=== PATIENT | female | born 1935 | race Caucasian/White ===

== ENCOUNTER 2016-06-14 16:41 | Inpatient (IN) ==
--- NOTE | 2016-06-14 16:52 | Emergency Department Note ---
Disposition Clinical Impression: Acalculous cholecystitis Disposition: Still a Patient Condition: Fair General Adult HPI - General Chief complaint: ED Abdominal Pain Stated complaint: RLQ abdominal pain Time Seen by Provider: 06/14/16 16:46 Source: patient Limitations: no limitations - History of Present Illness Pain Scale: 10 - Related Data Home Medications Medication Instructions Recorded Confirmed Atorvastatin [Lipitor] 10 mg PO HS 06/01/15 06/14/16 Cholecalciferol (Vitamin D3) 1,000 unit PO DAILY 06/01/15 06/14/16 [Vitamin D] Lisinopril-HCTZ 10-12.5 [Prinzide 1 each PO DAILY 06/01/15 06/14/16 10-12.5] Omeprazole [PriLOSEC] 20 mg PO BIDAC 06/01/15 06/14/16 Ropinirole [Requip] 3 mg PO BID 06/01/15 06/14/16 Sertraline [Zoloft] 25 mg PO BID 02/14/16 06/14/16 Aspirin 81 mg PO DAILY 06/14/16 06/14/16 HYDROcodone/Acet 5/325 mg [Taylor 1 tab PO Q8H PRN 06/14/16 06/14/16 5-325 mg] Hyoscyamine SL [Levsin SL] 0.125 mg SL TID 06/14/16 06/14/16 Lansoprazole [Prevacid] 15 mg PO DAILY 06/14/16 06/14/16 Ondansetron ODT [Zofran ODT] 4 mg SL Q8H PRN 06/14/16 06/14/16 Sucralfate [Carafate] 1 gm PO BID 06/14/16 06/14/16 Vitamin B Complex [B Complex] 1 each PO DAILY 06/14/16 06/14/16 Allergies Allergy/AdvReac Type Severity Reaction Status Date / Time gabapentin Allergy Rash Verified 06/14/16 19:11 terfenadine [From [place]] Allergy Rash Verified 06/14/16 19:11 tuberculin,PPD,multi-puncture Allergy Rash Verified 06/14/16 19:11 Past Medical History - Past Medical History Medical history: Reports: GERD, hyperlipidemia, hypertension Psychiatric history: Reports: anxiety, depression 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 - Social History Smoking Status: Never smoker Smokeless Tobacco Status: No Alcohol use: Reports: none Drug use: Reports: none Physical Exam - General Limitations: no limitations General appearance: alert, in no apparent distress Course Vital Signs Temperature 98.1 F 06/14/16 16:43 Pulse Rate 89 06/14/16 16:43 Respiratory Rate 18 06/14/16 16:43 Blood Pressure 113/53 06/14/16 16:43 O2 Sat by Pulse Oximetry 94 06/14/16 16:43 Temperature 97.6 F 06/19/16 10:50 Pulse Rate 72 06/19/16 10:50 Respiratory Rate 16 06/19/16 10:50 Blood Pressure 105/58 06/19/16 10:50 O2 Sat by Pulse Oximetry 96 06/19/16 10:50 Oxygen Delivery Oxygen Delivery Room Air Medical Decision Making - Lab Data Result diagrams: 06/19/16 03:58 06/19/16 03:58 Lab Results 06/14/16 06/14/16 06/14/16 Range/Units 17:52 17:52 17:52 WBC 17.2 H (4.3-11.1) K/mcL RBC 4.30 (3.82-4.97) M/mcL Hgb 12.0 (11.5-15.4) g/dL Hct 36.8 (35.3-44.9) % MCV 85.6 (83.0-100.0) fL MCH 27.9 L (28.0-33.3) pg MCHC 32.6 (31.6-35.5) g/dL RDW 14.6 H (11.5-14.5) % Plt Count 198 (140-400) K/mcL MPV 9.6 (9.4-12.4) fL Immature Gran % 0.4 (0-4) % Seg Neutrophils % 80.6 % Lymphocytes % 10.2 % Monocytes % 8.5 % Eosinophils % 0.1 % Basophils % 0.2 % Neutrophils # 13.9 H (1.6-8.9) K/mcL Lymphocytes # 1.8 (0.6-4.6) K/mcL Monocytes # 1.5 H (0.0-1.3) K/mcL Eosinophils # 0.0 (0.0-0.6) K/mcL Basophils # 0.0 (0.0-0.2) K/mcL Immature Plt Fraction 4.0 (1.1-6.1) % PT 14.1 H (9.4-12.1) Seconds INR 1.3 APTT 27.3 (26.0-36.0) Seconds Sodium 138 (136-145) mEq/L Potassium 3.4 L (3.5-4.5) mEq/L Chloride 103 (98-109) mEq/L Carbon Dioxide 25 (19-29) mEq/L BUN 16 (7-20) mg/dL Creatinine 0.89 (0.57-1.11) mg/dL Est GFR ( Amer) > 60 (> 60) Est GFR (Non-Af Amer) > 60 (> 60) BUN/Creatinine Ratio 18 (6-26) Glucose 91 (70-99) mg/dL POC Glucose (58-89) Calculated Osmolality 287 (280-300) Calcium 9.1 (8.6-10.8) mg/dL Phosphorus (2.3-4.7) mg/dL Magnesium (1.6-2.6) mg/dL Total Bilirubin 0.9 (0.2-1.2) mg/dL Direct Bilirubin 0.4 (0.0-0.5) mg/dL Indirect Bilirubin 0.5 (0.0-1.2) mg/dL AST 41 H (5-34) Units/L ALT 24 (0-55) Units/L Alkaline Phosphatase 79 (38-126) Units/L Troponin I (0-0.03) ng/mL Serum Total Protein 6.8 (6.0-8.3) g/dL Albumin 3.4 L (3.5-5.0) g/dL Globulin 3.4 (2.4-3.5) g/dL Albumin/Globulin Ratio 1.0 L (1.1-2.2) Amylase 29 (25-125) Units/L Lipase < 4 L (8-78) Units/L Urine Color (Yellow) Urine Clarity (Clear) Urine pH (5.0-8.0) pH Units Ur Specific [place] (1.010-1.025) Urine Protein (Neg-Trace) mg/dL Urine Glucose (UA) (Normal) mg/dL Urine Ketones (Negative) mg/dL Urine Blood (Negative) Urine Nitrite (Negative) Urine Bilirubin (Negative) Urine Urobilinogen (Normal) mg/dL Ur Leukocyte Esterase (Negative) Urine Microscopic RBC (0-3) per hpf Urine Microscopic WBC (0-3) per hpf Ur Squamous Epith Cells (None-Few) per lpf Calcium Oxalate Crystal Urine Bacteria (None-Few) per hpf Hyaline Casts (None-Few) per lpf Urine Yeast Ur Culture Indicated? (NO) 06/14/16 06/14/16 06/15/16 Range/Units 17:52 18:00 00:08 WBC (4.3-11.1) K/mcL RBC (3.82-4.97) M/mcL Hgb (11.5-15.4) g/dL Hct (35.3-44.9) % MCV (83.0-100.0) fL MCH (28.0-33.3) pg MCHC (31.6-35.5) g/dL RDW (11.5-14.5) % Plt Count (140-400) K/mcL MPV (9.4-12.4) fL Immature Gran % (0-4) % Seg Neutrophils % % Lymphocytes % % Monocytes % % Eosinophils % % Basophils % % Neutrophils # (1.6-8.9) K/mcL Lymphocytes # (0.6-4.6) K/mcL Monocytes # (0.0-1.3) K/mcL Eosinophils # (0.0-0.6) K/mcL Basophils # (0.0-0.2) K/mcL Immature Plt Fraction (1.1-6.1) % PT (9.4-12.1) Seconds INR APTT (26.0-36.0) Seconds Sodium (136-145) mEq/L Potassium (3.5-4.5) mEq/L Chloride (98-109) mEq/L Carbon Dioxide (19-29) mEq/L BUN (7-20) mg/dL Creatinine (0.57-1.11) mg/dL Est GFR ( Amer) (> 60) Est GFR (Non-Af Amer) (> 60) BUN/Creatinine Ratio (6-26) Glucose (70-99) mg/dL POC Glucose (58-89) Calculated Osmolality (280-300) Calcium (8.6-10.8) mg/dL Phosphorus (2.3-4.7) mg/dL Magnesium (1.6-2.6) mg/dL Total Bilirubin (0.2-1.2) mg/dL Direct Bilirubin (0.0-0.5) mg/dL Indirect Bilirubin (0.0-1.2) mg/dL AST (5-34) Units/L ALT (0-55) Units/L Alkaline Phosphatase (38-126) Units/L Troponin I 0.05 H* 0.03 (0-0.03) ng/mL Serum Total Protein (6.0-8.3) g/dL Albumin (3.5-5.0) g/dL Globulin (2.4-3.5) g/dL Albumin/Globulin Ratio (1.1-2.2) Amylase (25-125) Units/L Lipase (8-78) Units/L Urine Color Dark Yellow (Yellow) Urine Clarity Cloudy A (Clear) Urine pH 6.0 (5.0-8.0) pH Units Ur Specific [place] 1.030 H (1.010-1.025) Urine Protein Trace (Neg-Trace) mg/dL Urine Glucose (UA) Normal (Normal) mg/dL Urine Ketones Negative (Negative) mg/dL Urine Blood Negative (Negative) Urine Nitrite Negative (Negative) Urine Bilirubin Small H (Negative) Urine Urobilinogen Normal (Normal) mg/dL Ur Leukocyte Esterase Moderate H (Negative) Urine Microscopic RBC 0-3 (0-3) per hpf Urine Microscopic WBC 5-15 H (0-3) per hpf Ur Squamous Epith Cells Many H (None-Few) per lpf Calcium Oxalate Crystal Present Urine Bacteria Few (None-Few) per hpf Hyaline Casts Few (None-Few) per lpf Urine Yeast Test Not Performed Ur Culture Indicated? YES A (NO) 06/15/16 06/15/16 06/15/16 Range/Units 00:08 00:08 00:36 WBC 15.1 H (4.3-11.1) K/mcL RBC 4.11 (3.82-4.97) M/mcL Hgb 11.5 (11.5-15.4) g/dL Hct 35.8 (35.3-44.9) % MCV 87.1 (83.0-100.0) fL MCH 28.0 (28.0-33.3) pg MCHC 32.1 (31.6-35.5) g/dL RDW 14.6 H (11.5-14.5) % Plt Count 181 (140-400) K/mcL MPV 9.8 (9.4-12.4) fL Immature Gran % 0.5 (0-4) % Seg Neutrophils % 75.9 % Lymphocytes % 14.7 % Monocytes % 8.5 % Eosinophils % 0.1 % Basophils % 0.3 % Neutrophils # 11.5 H (1.6-8.9) K/mcL Lymphocytes # 2.2 (0.6-4.6) K/mcL Monocytes # 1.3 (0.0-1.3) K/mcL Eosinophils # 0.0 (0.0-0.6) K/mcL Basophils # 0.0 (0.0-0.2) K/mcL Immature Plt Fraction 3.9 (1.1-6.1) % PT (9.4-12.1) Seconds INR APTT (26.0-36.0) Seconds Sodium 140 (136-145) mEq/L Potassium 3.2 L (3.5-4.5) mEq/L Chloride 106 (98-109) mEq/L Carbon Dioxide 26 (19-29) mEq/L BUN 14 (7-20) mg/dL Creatinine 0.81 (0.57-1.11) mg/dL Est GFR ( Amer) > 60 (> 60) Est GFR (Non-Af Amer) > 60 (> 60) BUN/Creatinine Ratio 17 (6-26) Glucose 84 (70-99) mg/dL POC Glucose 83 (58-89) Calculated Osmolality 290 (280-300) Calcium 8.6 (8.6-10.8) mg/dL Phosphorus 2.8 (2.3-4.7) mg/dL Magnesium 1.9 (1.6-2.6) mg/dL Total Bilirubin 0.8 (0.2-1.2) mg/dL Direct Bilirubin (0.0-0.5) mg/dL Indirect Bilirubin (0.0-1.2) mg/dL AST 35 H (5-34) Units/L ALT 22 (0-55) Units/L Alkaline Phosphatase 70 (38-126) Units/L Troponin I (0-0.03) ng/mL Serum Total Protein 6.0 (6.0-8.3) g/dL Albumin 3.0 L (3.5-5.0) g/dL Globulin 3.0 (2.4-3.5) g/dL Albumin/Globulin Ratio 1.0 L (1.1-2.2) Amylase (25-125) Units/L Lipase (8-78) Units/L Urine Color (Yellow) Urine Clarity (Clear) Urine pH (5.0-8.0) pH Units Ur Specific [place] (1.010-1.025) Urine Protein (Neg-Trace) mg/dL Urine Glucose (UA) (Normal) mg/dL Urine Ketones (Negative) mg/dL Urine Blood (Negative) Urine Nitrite (Negative) Urine Bilirubin (Negative) Urine Urobilinogen (Normal) mg/dL Ur Leukocyte Esterase (Negative) Urine Microscopic RBC (0-3) per hpf Urine Microscopic WBC (0-3) per hpf Ur Squamous Epith Cells (None-Few) per lpf Calcium Oxalate Crystal Urine Bacteria (None-Few) per hpf Hyaline Casts (None-Few) per lpf Urine Yeast Ur Culture Indicated? (NO) Attestation Statement - Attestation Attestation: I examined this patient and my medical decision-making was reviewed with the EMBALMER APPRENTICE/PA/Advanced Practice Nurse/Resident Physician. I agree with the documented findings, disposition and treatment plan as described except to the extent set forth below. Face to face time provided Patient complains of right-sided abdominal pain for the past 3 days. She appears in no acute distress on exam. Triage vitals and note reviewed by me. Patient seen and evaluated in conjunction with the resident physician
--- NOTE | 2016-06-14 17:10 | Emergency Department Note ---
Disposition Clinical Impression: Acalculous cholecystitis Disposition: Still a Patient Condition: Fair Referrals: Jose Zaman MD [Primary Care Provider] - Forms: ED Satisfaction Letter, Work/School Release Time of Disposition: 19:00 Abdominal Pain HPI - General Chief Complaint: ED Abdominal Pain Stated Complaint: RLQ abdominal pain Time Seen by Provider: 06/14/16 16:46 Source: patient Mode of arrival: ambulatory Limitations: no limitations Nursing Notes Reviewed: Yes Vital Signs Reviewed: Yes - History of Present Illness HPI Narrative: Patient presents to the ED the chief complaint is abdominal pain. Patient reports that she has had this pain for 3 days. She woke up Sunday morning and had discomfort in her right lower quadrant. She started having profuse vomiting and vomited multiple times, which eventually just became very yellow and dry heaving. She states that since then she has had no appetite and has had very little to eat or drink. She was actually in [place] and went into an emergency department there yesterday who did a CT of her abdomen and pelvis as well as a gallbladder ultrasound and states that her gallbladder did not look good, but was not anything surgical at the time. Was told to follow up with her primary care physician. She was placed on a PPI, sucralfate, given Hycosin, mean and discharge. She states her pain is increasing and she is concerned something is wrong. She denies any fever, chills, chest pain, shortness of breath, diarrhea, pain or swelling in her legs. She has no history of DVT or PE. She does state that she takes a baby aspirin. States she is relatively healthy otherwise and has had her tubes tied several years ago. The pain is described as a very sharp stabbing pain mainly in her right upper quadrant but also in her epigastrium, much worse with a deep breath and palpation. Is also having pain in the right lower quadrant that feels achy. It does not seem to be affected by eating, but she states she has not had anything to eat since she started vomiting. She also reports that she was diagnosed with urinary tract infection but was not given any antibiotics. She also states that she has a history of kidney stones and this feels completely dissimilar. Pain Scale: 10 - Related Data Home Medications Medication Instructions Recorded Confirmed Amitriptyline [Elavil] 25 mg PO HS 06/01/15 02/14/16 Atorvastatin [Lipitor] 10 mg PO HS 06/01/15 02/14/16 Cholecalciferol (Vitamin D3) 1,000 unit PO DAILY 06/01/15 02/14/16 [Vitamin D] Lisinopril-HCTZ 10-12.5 [Prinzide 1 each PO DAILY 06/01/15 02/14/16 10-12.5] Omeprazole [PriLOSEC] 20 mg PO BIDAC 06/01/15 02/14/16 Ropinirole [Requip] 3 mg PO BID 06/01/15 02/14/16 Tizanidine HCl [Zanaflex] 2 mg PO BID 06/01/15 02/14/16 Triamcinolone Acet 0.1% CRM 1 appl TP BID 06/01/15 02/14/16 [Kenalog] Sertraline [Zoloft] 25 mg PO BID 02/14/16 02/14/16 Previous Rx's Medication Instructions Recorded TraMADol [Ultram] 50 mg PO TID #15 tablet 06/02/15 Allergies Allergy/AdvReac Type Severity Reaction Status Date / Time gabapentin Allergy Rash Verified 06/14/16 16:42 terfenadine [From Seldane] Allergy Rash Verified 06/14/16 16:42 tuberculin,PPD,multi-puncture Allergy Rash Verified 06/14/16 16:42 All systems ED: reviewed and negative except as stated. 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 Psychiatric history: Reports: anxiety, depression - Social History Smoking status: Never smoker Alcohol use: Reports: none Drug use: Reports: none Physical Exam - General Limitations: no limitations General appearance: alert, in no apparent distress - Head Head exam: atraumatic, normocephalic, normal inspection - Eye Eye exam: Present: normal appearance, PERRL, EOMI - ENT ENT exam: mucous membranes dry - Neck Neck exam: Present: normal inspection, full ROM, trachea midline - Chest Chest inspection: Present: normal inspection, symmetric chest wall rise - Respiratory Respiratory exam: Present: normal lung sounds bilaterally - Cardiovascular Cardiovascular exam: Present: regular rate, normal rhythm, normal heart sounds - Abdominal Exam Abdominal exam: Present: soft, tenderness, guarding (RLQ), hyperactive bowel sounds, tenderness at McBurney's Point. Absent: distention, rebound, Daigle's sign Abdominal tenderness: Present: RUQ, moderate - Extremities Exam Extremities exam: Present: normal inspection, full ROM. Absent: tenderness, pedal edema - Back Exam Back exam: Present: normal inspection, full ROM. Absent: tenderness - Neurological Exam Neurological exam: Present: alert, oriented X3 - Psychiatric Psychiatric exam: Present: normal affect, normal mood - Skin Skin exam: Present: warm, dry, intact, normal color Course - Reevaluation(s) Reevaluation #1: I spoke with the on-call surgeon, Dr. Bruce. He agreed with ultrasound. Requested admission to the hospitalist service and consult to him and he was here tonight or in the morning. Patient's pain is fairly well under control and was denying the need for any pain medication. Time: 18:50 Vital Signs Temperature 98.1 F 06/14/16 16:43 Pulse Rate 89 06/14/16 16:43 Respiratory Rate 18 06/14/16 16:43 Blood Pressure 113/53 06/14/16 16:43 O2 Sat by Pulse Oximetry 94 06/14/16 16:43 Temperature 98.1 F 06/14/16 16:43 Pulse Rate 76 06/14/16 17:52 Respiratory Rate 18 06/14/16 16:43 Blood Pressure 111/61 06/14/16 17:52 O2 Sat by Pulse Oximetry 94 06/14/16 16:43 Oxygen Delivery Oxygen Delivery Room Air Abdominal Pain - Lab Data Result diagrams: 06/14/16 17:52 06/14/16 17:52 Lab Results 06/14/16 06/14/16 06/14/16 Range/Units 17:52 17:52 17:52 WBC 17.2 H (4.3-11.1) K/mcL RBC 4.30 (3.82-4.97) M/mcL Hgb 12.0 (11.5-15.4) g/dL Hct 36.8 (35.3-44.9) % MCV 85.6 (83.0-100.0) fL MCH 27.9 L (28.0-33.3) pg MCHC 32.6 (31.6-35.5) g/dL RDW 14.6 H (11.5-14.5) % Plt Count 198 (140-400) K/mcL MPV 9.6 (9.4-12.4) fL Immature Gran % 0.4 (0-4) % Seg Neutrophils % 80.6 % Lymphocytes % 10.2 % Monocytes % 8.5 % Eosinophils % 0.1 % Basophils % 0.2 % Neutrophils # 13.9 H (1.6-8.9) K/mcL Lymphocytes # 1.8 (0.6-4.6) K/mcL Monocytes # 1.5 H (0.0-1.3) K/mcL Eosinophils # 0.0 (0.0-0.6) K/mcL Basophils # 0.0 (0.0-0.2) K/mcL Immature Plt Fraction 4.0 (1.1-6.1) % PT 14.1 H (9.4-12.1) Seconds INR 1.3 APTT 27.3 (26.0-36.0) Seconds Sodium 138 (136-145) mEq/L Potassium 3.4 L (3.5-4.5) mEq/L Chloride 103 (98-109) mEq/L Carbon Dioxide 25 (19-29) mEq/L BUN 16 (7-20) mg/dL Creatinine 0.89 (0.57-1.11) mg/dL Est GFR ( Amer) > 60 (> 60) Est GFR (Non-Af Amer) > 60 (> 60) BUN/Creatinine Ratio 18 (6-26) Glucose 91 (70-99) mg/dL Calculated Osmolality 287 (280-300) Calcium 9.1 (8.6-10.8) mg/dL Total Bilirubin 0.9 (0.2-1.2) mg/dL Direct Bilirubin 0.4 (0.0-0.5) mg/dL Indirect Bilirubin 0.5 (0.0-1.2) mg/dL AST 41 H (5-34) Units/L ALT 24 (0-55) Units/L Alkaline Phosphatase 79 (38-126) Units/L Troponin I (0-0.03) ng/mL Serum Total Protein 6.8 (6.0-8.3) g/dL Albumin 3.4 L (3.5-5.0) g/dL Globulin 3.4 (2.4-3.5) g/dL Albumin/Globulin Ratio 1.0 L (1.1-2.2) Amylase 29 (25-125) Units/L Lipase < 4 L (8-78) Units/L Urine Color (Yellow) Urine Clarity (Clear) Urine pH (5.0-8.0) pH Units Ur Specific [place] (1.010-1.025) Urine Protein (Neg-Trace) mg/dL Urine Glucose (UA) (Normal) mg/dL Urine Ketones (Negative) mg/dL Urine Blood (Negative) Urine Nitrite (Negative) Urine Bilirubin (Negative) Urine Urobilinogen (Normal) mg/dL Ur Leukocyte Esterase (Negative) Urine Microscopic RBC (0-3) per hpf Urine Microscopic WBC (0-3) per hpf Ur Squamous Epith Cells (None-Few) per lpf Calcium Oxalate Crystal Urine Bacteria (None-Few) per hpf Hyaline Casts (None-Few) per lpf Urine Yeast Ur Culture Indicated? (NO) 06/14/16 06/14/16 Range/Units 17:52 18:00 WBC (4.3-11.1) K/mcL RBC (3.82-4.97) M/mcL Hgb (11.5-15.4) g/dL Hct (35.3-44.9) % MCV (83.0-100.0) fL MCH (28.0-33.3) pg MCHC (31.6-35.5) g/dL RDW (11.5-14.5) % Plt Count (140-400) K/mcL MPV (9.4-12.4) fL Immature Gran % (0-4) % Seg Neutrophils % % Lymphocytes % % Monocytes % % Eosinophils % % Basophils % % Neutrophils # (1.6-8.9) K/mcL Lymphocytes # (0.6-4.6) K/mcL Monocytes # (0.0-1.3) K/mcL Eosinophils # (0.0-0.6) K/mcL Basophils # (0.0-0.2) K/mcL Immature Plt Fraction (1.1-6.1) % PT (9.4-12.1) Seconds INR APTT (26.0-36.0) Seconds Sodium (136-145) mEq/L Potassium (3.5-4.5) mEq/L Chloride (98-109) mEq/L Carbon Dioxide (19-29) mEq/L BUN (7-20) mg/dL Creatinine (0.57-1.11) mg/dL Est GFR ( Amer) (> 60) Est GFR (Non-Af Amer) (> 60) BUN/Creatinine Ratio (6-26) Glucose (70-99) mg/dL Calculated Osmolality (280-300) Calcium (8.6-10.8) mg/dL Total Bilirubin (0.2-1.2) mg/dL Direct Bilirubin (0.0-0.5) mg/dL Indirect Bilirubin (0.0-1.2) mg/dL AST (5-34) Units/L ALT (0-55) Units/L Alkaline Phosphatase (38-126) Units/L Troponin I 0.05 H* (0-0.03) ng/mL Serum Total Protein (6.0-8.3) g/dL Albumin (3.5-5.0) g/dL Globulin (2.4-3.5) g/dL Albumin/Globulin Ratio (1.1-2.2) Amylase (25-125) Units/L Lipase (8-78) Units/L Urine Color Dark Yellow (Yellow) Urine Clarity Cloudy A (Clear) Urine pH 6.0 (5.0-8.0) pH Units Ur Specific [place] 1.030 H (1.010-1.025) Urine Protein Trace (Neg-Trace) mg/dL Urine Glucose (UA) Normal (Normal) mg/dL Urine Ketones Negative (Negative) mg/dL Urine Blood Negative (Negative) Urine Nitrite Negative (Negative) Urine Bilirubin Small H (Negative) Urine Urobilinogen Normal (Normal) mg/dL Ur Leukocyte Esterase Moderate H (Negative) Urine Microscopic RBC 0-3 (0-3) per hpf Urine Microscopic WBC 5-15 H (0-3) per hpf Ur Squamous Epith Cells Many H (None-Few) per lpf Calcium Oxalate Crystal Present Urine Bacteria Few (None-Few) per hpf Hyaline Casts Few (None-Few) per lpf Urine Yeast Test Not Performed Ur Culture Indicated? YES A (NO) S.B.ALucia - S.BSayALucia Situation: Demographics, MOA Background: Presenting Complaint, Relevant PMH, Meds, & Allergies Assessment: Vital Signs, Course and respsone to treatment, Exam Concerns, Patient/Family Expectation, Pertinant Lab Results, Outstanding Labs Recommendation: Barrier(s) to disposition, Recommendation based on pending studies, treatments, or consults S.B.A.Irvin Report Given to: Dr. Carlos Moctezuma Repor Time: 19:00
[2016-06-14] MEDS ORDERED: 0.9 % Sodium Chloride 500 ML IVC ONE (17:31)
[2016-06-14 17:57] LABS: Basophils % 0.2 %; Eosinophils % 0.1 %; Hematocrit 36.8 % (35.3-44.9); Immature Granulocytes % 0.4 % (0-4); Lymphocytes # 1.8 K/mcL (0.6-4.6); Lymphocytes % 10.2 %; Mean Corpuscular HGB Conc 32.6 g/dL (31.6-35.5); Mean Corpuscular Hemoglobin 27.9 pg (28.0-33.3); Mean Corpuscular Volume 85.6 fL (83.0-100.0); Mean Platelet Volume 9.6 fL (9.4-12.4); Monocytes # 1.5 K/mcL (0.0-1.3); Monocytes % 8.5 %; Neutrophils # 13.9 K/mcL (1.6-8.9); Platelet Count 198 K/mcL (140-400); Red Cell Distribution Width 14.6 % (11.5-14.5); Segmented Neutrophils % 80.6 %
[2016-06-14 18:06] LABS: INR 1.3; Prothrombin Time 14.1 Seconds (9.4-12.1)
[2016-06-14 18:09] LABS: Activated Partial Thrombo Time 27.3 Seconds (26.0-36.0)
[2016-06-14 18:12] LABS: Alanine Aminotransferase 24 Units/L (0-55); Albumin 3.4 g/dL (3.5-5.0); Alkaline Phosphatase 79 Units/L (38-126); Amylase 29 Units/L (25-125); Aspartate Amino Transferase 41 Units/L (5-34); BUN/Creatinine Ratio 18 (6-26); Bilirubin,Direct 0.4 mg/dL (0.0-0.5); Bilirubin,Indirect 0.5 mg/dL (0.0-1.2); Bilirubin,Total 0.9 mg/dL (0.2-1.2); Blood Urea Nitrogen 16 mg/dL (7-20); Calcium 9.1 mg/dL (8.6-10.8); Carbon Dioxide 25 mEq/L (19-29); Chloride 103 mEq/L (98-109); Globulin 3.4 g/dL (2.4-3.5); Glucose 91 mg/dL (70-99); Osmolality,Calculated 287 (280-300); Potassium 3.4 mEq/L (3.5-4.5); Sodium 138 mEq/L (136-145); Total Protein 6.8 g/dL (6.0-8.3); eGFR For African Americans > 60 (> 60); eGFR For Non-African Americans > 60 (> 60)
[2016-06-14 18:13] LABS: Lipase < 4 Units/L (8-78)
[2016-06-14 18:14] LABS: Bilirubin,Urine Small (Negative); Blood,Urine Negative (Negative); Clarity,Urine Cloudy (Clear); Color,Urine Dark Yellow (Yellow); Glucose,Urine (UA) Normal (Normal); Ketones,Urine Negative (Negative); Leukocyte Esterase,Urine Moderate (Negative); Nitrite,Urine Negative (Negative); Protein,Urine Trace mg/dL (Neg-Trace); Urobilinogen,Urine Normal (Normal)
[2016-06-14 18:16] LABS: Hyaline Casts,Urine Few per lpf (None-Few); Squamous Epithelial Cell,Urine Many per lpf (None-Few)
[2016-06-14 18:26] LABS: Calcium Oxalate Crystals,Urine Present
[2016-06-14 18:27] LABS: RBC,Urine 0-3 per hpf (0-3)
[2016-06-14 18:28] LABS: Bacteria,Urine Few per hpf (None-Few)
[2016-06-14] MEDS ORDERED: Naloxone 0.4 MG/ML INJ IVP PRN (23:47)
--- NOTE | 2016-06-14 23:49 | Internal Med History&Physical ---
<Jarad Charlton - Last Filed: 06/15/16 01:11> Date of Encounter: 06/15/16 Time of Encounter: 23:00 Assessment and Plan (1) Acalculous cholecystitis Current visit: Yes Status: Acute - CT A/P and Gallbladder US suggest acute acalculous cholecystitis. Positive Daigle sign. - Surgery consulted and ED physician had discussed the case with Dr. Perry. Appreciate surgery evaluation and/or intervention. - Will give 1L NS bolus and start IV ceftriaxone given her leukocytosis and reported low blood pressure. - NPO for possible cholecystitis tomorrow. - Pain control with IV pain medication prn. - Closely monitor. (2) Elevated troponin Current visit: Yes Status: Acute - Slight elevated troponin at 0.05. - No chest pain/discomfort reported and no significant ischemic on EKG. - Will obtain echocardiogram for further evaluation of heart function. - Continue to trend troponin q6H. (3) Hyperlipidemia Current visit: Yes Status: Chronic - Continue Lipitor. Qualifiers: Hyperlipidemia type: unspecified Qualified Code(s): E78.5 - Hyperlipidemia , unspecified (4) GERD (gastroesophageal reflux disease) Current visit: Yes Status: Chronic - Continue home dose omeprazole. Qualifiers: Esophagitis presence: esophagitis presence not specified Qualified Code(s) : K21.9 - Gastro-esophageal reflux disease without esophagitis (5) Depression Current visit: Yes Status: Chronic - Continue home dose Zoloft. Qualifiers: Depression Type: unspecified Qualified Code(s): F32.9 - Major depressive disorder, single episode, unspecified (6) DVT prophylaxis Current visit: Yes Status: Acute - Calf pump for mechanical DVT prophylaxis. Internal Medicine - H&P: HPI Chief complaint: RUQ abdominal pain Admitted From: Emergency Dept Plans for Post Hospital Care: Home History of present illness: Ms. Mcclendon is a 81 year old female with PMH of HTN, hyperlipidemia, GERD, venous insufficiency, restless leg syndrome, depression and history of kidney stones. Patient presented to [place] ED with complaint of RUQ abdominal pain radiating to RLQ. It's acute new onset of pain starting 5/1 night. Patient describes is as constant sharp pain and different from her pain from kideny stone in the past. It's aggravated by deep breath and palpitation. No alleviating factor noted. Patient is not sure it's modified by eating since she has not eaten due to poor appetite since. It's associated with nausea and vomiting with yellow liquid vomitus. Patient was in [place] at that time and had an ED visit there. Per patient, she got CT A/P and gallbladder US there and was told the gallbladder looks infected but surgery is not indicated so she was discharge with PPI, sucralfate and hyoscyamine. Patient's abdominal pain, nausea and vomiting persist so eventually patient came to [place] ED right after coming back to [place]. Patient denies fever, chills, diarrhea, hematochezia, melena, hematuria, dysuria, chest pain, shortness of breath, diaphoresis, palpitation, syncope, significant weight change. Patient in general is pretty healthy and active as she can walk more than 2 blocks and perform activities of daily living without any problem. Patient denies any known diagnosis of cardiopulmonary problem. She had echocardiogram 5 years ago and stress test older than that and was told everything is normal. Patient is full code but no intubation. In ED, patient was noted to have leukocytosis at 17.2 and slightly elevated troponin at 0.05. CT A/P suggests acalculous cholecystitis and that's further confirmed by gallbladder US. Per ED note, ED resident had discussed this case with Dr. Perry, the surgeon radiologic electronic specialist, who recommends admission for further evaluation and management. Past Med Surg Social Fam HX - Past Medical History Medical history: GERD, hyperlipidemia, hypertension, venous stasis Psychiatric history: anxiety, depression - Past Surgical History Surgical History: orthopedic, other (Right knee surgery, lower back surgery), other (tubal ligation) - Social History Smoking Status: Never smoker Smokeless Tobacco Status: No Alcohol use: none Drug use: none - Family History Daughter Living Status: Hx Family Endocrine Disorder: Yes (DM) Internal Medicine - H&P: Meds Atorvastatin [Lipitor] 10 mg PO HS 06/01/15 [History] Cholecalciferol (Vitamin D3) [Vitamin D] 1,000 unit PO DAILY 06/01/15 [History] Lisinopril-HCTZ 10-12.5 [Prinzide 10-12.5] 1 each PO DAILY 06/01/15 [History] Omeprazole [PriLOSEC] 20 mg PO BIDAC 06/01/15 [History] Ropinirole [Requip] 3 mg PO BID 06/01/15 [History] Sertraline [Zoloft] 25 mg PO BID 02/14/16 [History] Aspirin 81 mg PO DAILY 06/14/16 [History] HYDROcodone/Acet 5/325 mg [[place] 5-325 mg] 1 tab PO Q8H PRN 06/14/16 [History] Hyoscyamine SL [Levsin SL] 0.125 mg SL TID 06/14/16 [History] Lansoprazole [Prevacid] 15 mg PO DAILY 06/14/16 [History] Ondansetron ODT [Zofran ODT] 4 mg SL Q8H PRN 06/14/16 [History] Sucralfate [Carafate] 1 gm PO BID 06/14/16 [History] Vitamin B Complex [B Complex] 1 each PO DAILY 06/14/16 [History] Allergies gabapentin Allergy (Verified 06/14/16 19:11) Rash terfenadine [From [place]eldane] Allergy (Verified 06/14/16 19:11) Rash tuberculin,PPD,multi-puncture Allergy (Verified 06/14/16 19:11) Rash All Systems PM: A 10-system review of systems was performed and is negative for pertinent findings except as documented above in the HPI. - Constitutional Constitutional: anorexia, no chills, no fever(s), no weight gain, no weight loss - EENT Eyes: no change in vision Ears: no decreased hearing Nose, mouth and throat: no dysphagia, no odynophagia - Cardiovascular Cardiovascular ROS IM: no chest pain, no diaphoresis, no lightheadedness, no syncope - Respiratory Respiratory: cough (Dry cough for a month. Per patient, it's from Lisinopril use , which she had discontinued.), no dyspnea, no hemoptysis - Gastrointestinal Gastrointestinal: as per HPI, abdominal pain (RUQ radiating to RLQ), nausea, vomiting, no diarrhea, no hematochezia, no melena - Genitourinary Genitourinary: no difficulty urinating, no dysuria, no hematuria - Musculoskeletal Musculoskeletal ROS IM: arthralgias (Chronic right knee pain), back pain ( Chronic) - Integumentary Integumentary IM: no rash, no jaundice - Neurological Neurological ROS: no focal weakness, no headache(s), no numbness, no tingling - Hematologic/Lymphatic Hematologic/Lymphatic: no easy bleeding, no easy bruising - Constitutional Vitals: Temp Pulse Resp BP Pulse Ox 98.6 F 84 18 113/63 91 06/14/16 21:17 06/14/16 21:17 06/14/16 21:17 06/14/16 21:17 06/14/16 21:17 General appearance: Present: cooperative, A&O X 3, no acute distress, answers questions appropriately - Head Head exam: Present: atraumatic, normocephalic - Eye Eye exam: Present: EOMI, PERRL, conjuntiva pink, sclera anicteric - Neck Neck exam general surgery: Present: supple, trachea midline. Absent: lymphadenopathy - Respiratory Respiratory exam: Present: CTAB. Absent: accessory muscle use, rales, rhonchi, wheezes - Cardiovascular Cardiovascular exam: Present: RRR, +S1, +S2. Absent: diastolic murmur, gallop, rubs, systolic murmur - GI/Abdominal GI/Abdominal exam: Present: normal bowel sounds, soft, tenderness (RUQ > RLQ, positive Daigle sign.), no peritoneal signs. Absent: distended - Extremities Exam Extremities exam: Present: warm, radial pulses palpable and symetrical. Absent : calf tenderness, cyanotic Additional comments: Bilateral LE venous stasis. - Neurological Exam Neurological exam: Present: CN II-XII intact, oriented X3, no focal deficits. Absent: pronater drift, facial droop, speech deficit - Skin Skin exam: Present: dry, intact, warm Internal Med - H&P Results - Labs CBC & Chem 7: 06/15/16 00:08 06/15/16 00:08 Labs: Short CBC 06/14/16 Range/Units 17:52 WBC 17.2 H (4.3-11.1) K/mcL Hgb 12.0 (11.5-15.4) g/dL Hct 36.8 (35.3-44.9) % Plt Count 198 (140-400) K/mcL Neutrophils # 13.9 H (1.6-8.9) K/mcL BMP 06/14/16 Range/Units 17:52 Sodium 138 (136-145) mEq/L Potassium 3.4 L (3.5-4.5) mEq/L Chloride 103 (98-109) mEq/L Carbon Dioxide 25 (19-29) mEq/L BUN 16 (7-20) mg/dL Creatinine 0.89 (0.57-1.11) mg/dL Glucose 91 (70-99) mg/dL Calcium 9.1 (8.6-10.8) mg/dL Cardiac Enzymes 06/14/16 Range/Units 17:52 Troponin I 0.05 H* (0-0.03) ng/mL Liver Function 06/14/16 Range/Units 17:52 Total Bilirubin 0.9 (0.2-1.2) mg/dL Direct Bilirubin 0.4 (0.0-0.5) mg/dL AST 41 H (5-34) Units/L ALT 24 (0-55) Units/L Alkaline Phosphatase 79 (38-126) Units/L Albumin 3.4 L (3.5-5.0) g/dL Urine 06/14/16 Range/Units 18:00 Urine Color Dark Yellow (Yellow) Urine Clarity Cloudy A (Clear) Urine pH 6.0 (5.0-8.0) pH Units Ur Specific [place] 1.030 H (1.010-1.025) Urine Protein Trace (Neg-Trace) mg/dL Urine Glucose (UA) Normal (Normal) mg/dL - EKG Data -: EKG Interpreted by Myself EKG shows normal: sinus rhythm Rate: normal - EKG Data EKG comments: 06/15/16 01:14 HR 68, WI 163, QRS 84, normal sinus rhythm, no significant ischemic change noted. - Impressions Impressions Abdomen/Pelvis CT 06/14/16 17:02 IMPRESSION: 1. Gallbladder distention with mild gallbladder wall thickening and trace perihepatic fluid. The changes may represent acalculous cholecystitis. Sonographic correlation recommended. 2. Small amount of free pelvic fluid. Unless the fluid is related to the gallbladder pathology, the etiology is not readily apparent. 3. Otherwise no acute findings in the abdomen or pelvis. No CT evidence of appendicitis. Scattered colonic diverticulosis with no acute features. D/ / 06/14/2016 17:34:06 Lgoan Sinclair MD / abhinav Interpreting Provider: Logan Sinclair MD Gallbladder Ultrasound 06/14/16 18:17 IMPRESSION: In keeping with the earlier CT findings, sonographic findings of the gallbladder suspicious for acute cholecystitis. There probable tiny cholelithiasis. Hepatic steatosis. D/ / Polina Zavala MD / Polina Zavala MD Interpreting Provider: Polina Zavala MD <AntwonyeceniaHolland R - Last Filed: 06/15/16 01:55> Date of Encounter: 06/14/16 Internal Medicine - H&P: HPI History of present illness: Ms. Mcclendon is a 81 year old female All Systems PM: A 10-system review of systems was performed and is negative for pertinent findings except as documented above in the HPI. - Constitutional Vitals: Temp Pulse Resp BP Pulse Ox 98.4 F 72 16 98/54 92 06/15/16 00:51 06/15/16 00:51 06/15/16 00:51 06/15/16 00:51 06/15/16 00:51 Internal Med - H&P Results - Labs CBC & Chem 7: 06/15/16 00:08 06/15/16 00:08 Labs: Short CBC 06/15/16 Range/Units 00:08 WBC 15.1 H (4.3-11.1) K/mcL Hgb 11.5 (11.5-15.4) g/dL Hct 35.8 (35.3-44.9) % Plt Count 181 (140-400) K/mcL Neutrophils # 11.5 H (1.6-8.9) K/mcL BMP 06/15/16 00:08 Sodium 140 Potassium 3.2 L Chloride 106 Carbon Dioxide 26 BUN 14 Creatinine 0.81 Glucose 84 Calcium 8.6 Cardiac Enzymes 06/15/16 Range/Units 00:08 Troponin I 0.03 (0-0.03) ng/mL Liver Function 06/15/16 Range/Units 00:08 Total Bilirubin 0.8 (0.2-1.2) mg/dL AST 35 H (5-34) Units/L ALT 22 (0-55) Units/L Alkaline Phosphatase 70 (38-126) Units/L Albumin 3.0 L (3.5-5.0) g/dL - Attending Attestation I performed history and physical examination of the patient and discussed management with the Resident. I reviewed the Residents note and agree with documented findings and plan of care. 81 Y/F with h/o HTN, hyperlipidemia, GERD, venous insufficiency, restless leg syndrome, depression is admitted with right upper quadrant abdominal pain going to the back, which is constant and sharp, worse on deep breath. Associated with nausea and vomiting. She apparently was evaluated in [place], 2 days ago and was noted to have abnormal gallbladder, but surgery is not indicated. O/E: Right upper quadrant tenderness present. Lungs clear to auscultation. Cardiac regular rate and rhythm. EKG personally reviewed by me shows sinus rhythm with no acute ST-T changes. CT scan of the abdomen and pelvis reported - Gallbladder distention with mild gallbladder wall thickening and trace perihepatic fluid. US scan of the gallbladder reports - sonographic findings of the gallbladder suspicious for acute cholecystitis. Labs showed leukocytosis; troponin 0.05 A/P: - Acute cholecystitis: Surgical consult Dr Guzman was notified by the ER. Start ceftriaxone. Incentive spirometer. Pain relief. UTI: Urine cultures pending. Ceftriaxone. Mild elevation of troponin: In the context of cholecystitis. Trend troponins. Echocardiogram. Consider Cardiology consult for presurgical evaluation.
[2016-06-15 00:46] LABS: Basophils % 0.3 %; Eosinophils % 0.1 %; Hematocrit 35.8 % (35.3-44.9); Hemoglobin 11.5 g/dL (11.5-15.4); Immature Granulocytes % 0.5 % (0-4); Immature Platelets 3.9 % (1.1-6.1); Lymphocytes # 2.2 K/mcL (0.6-4.6); Lymphocytes % 14.7 %; Mean Corpuscular HGB Conc 32.1 g/dL (31.6-35.5); Mean Corpuscular Volume 87.1 fL (83.0-100.0); Mean Platelet Volume 9.8 fL (9.4-12.4); Monocytes # 1.3 K/mcL (0.0-1.3); Monocytes % 8.5 %; Neutrophils # 11.5 K/mcL (1.6-8.9); Platelet Count 181 K/mcL (140-400); Red Blood Count 4.11 M/mcL (3.82-4.97); Red Cell Distribution Width 14.6 % (11.5-14.5); Segmented Neutrophils % 75.9 %
[2016-06-15 01:02] LABS: Alanine Aminotransferase 22 Units/L (0-55); Alkaline Phosphatase 70 Units/L (38-126); Aspartate Amino Transferase 35 Units/L (5-34); BUN/Creatinine Ratio 17 (6-26); Bilirubin,Total 0.8 mg/dL (0.2-1.2); Blood Urea Nitrogen 14 mg/dL (7-20); Calcium 8.6 mg/dL (8.6-10.8); Carbon Dioxide 26 mEq/L (19-29); Chloride 106 mEq/L (98-109); Glucose 84 mg/dL (70-99); Magnesium 1.9 mg/dL (1.6-2.6); Osmolality,Calculated 290 (280-300); Phosphorous 2.8 mg/dL (2.3-4.7); Potassium 3.2 mEq/L (3.5-4.5); Sodium 140 mEq/L (136-145); eGFR For African Americans > 60 (> 60); eGFR For Non-African Americans > 60 (> 60)
[2016-06-15] MEDS ORDERED: 0.9 % Sodium Chloride 1,000 ML IVC ONE (01:06)
[2016-06-15] MEDS ORDERED: *HR* Morphine 2 MG/ML SYRINGE IVP ONE (01:07)
[2016-06-15] MEDS ORDERED: Acetaminophen 325 MG TABLET PO PRN (01:54)
[2016-06-15] MEDS ORDERED: 0.9 % Sodium Chloride 1,000 ML ONE (04:00)
[2016-06-15] MEDS: *HR* Morphine 2 MG/ML SYRINGE IVP PRN ×2 (13:09→21:10)
--- NOTE | 2016-06-15 15:11 | General Surgery Consult Note ---
Date of Encounter: 06/15/16 Time of Encounter: 15:00 Assessment and Plan (1) Acalculous cholecystitis Current Visit: Yes Status: Acute Clear liquid diet NPO after midnight IV antibiotics- Zosyn IV fluids- 75ml/hour Supportive care/pain control IS every 1 hour while awake Plan to proceed to the OR for cholecystectomy with Dr. Perry when medically clear from cardiac standpoint (discussed with primary team) (2) Elevated troponin Current Visit: Yes Status: Acute 0.05>0.03 Await echocardiogram Await for patient to be medically cleared to proceed to the operating room (3) DVT prophylaxis Current Visit: Yes Status: Acute EPCDs to bilateral lower extremities for DVT prophylaxis Add heparin 5,000 units SQ twice daily for DVT prophylaxis History of Present Illness Consult date: 06/14/16 Reason for consult: other (cholecystitis) Requesting physician: Quirino Robins History of present illness: Mrs. Mcclendon is a very pleasant 81 year old female who presented to the ED with complaints of RUQ pain with associated nausea/vomiting. She reports sudden onset 3 days ago. The pains is sharp and stabbing and located in the RUQ and epigastric area. It does radiate into her back. She has never experienced pain like this in the past. Admits to nausea and vomiting but denies any hematemesis of coffee ground emesis. Denies any fevers/chills. Denies any diarrhea/ constipation. Last bowel movement was 3 days ago and she typically has a BM every other day. Denies any melena or hematochezia. Denies any weight loss. Denies any chest pains or shortness of breath. She admits to difficulty taking a deep breath due to pain in the RUQ. Denies any difficulty with urination. Past Med Surg Social Fam HX - Past Medical History Source: patient, old records reviewed Medical history: arthritis, GERD, hyperlipidemia, hypertension, migraine, venous stasis, other (restless leg syndrome, osteopenia) Psychiatric history: anxiety, depression - Past Surgical History Surgical History: orthopedic, other (Right knee surgery, lower back surgery), other (tubal ligation, colonoscopy greater than 10 years ago) - Social History Smoking Status: Never smoker Smokeless Tobacco Status: No Alcohol use: none Drug use: none Current living situation: Home - Independent Activity Level: Independent ambulation - Family History Daughter Living Status: Hx Family Endocrine Disorder: Yes (DM) Medications and Allergies Atorvastatin [Lipitor] 10 mg PO HS 06/01/15 [History] Cholecalciferol (Vitamin D3) [Vitamin D] 1,000 unit PO DAILY 06/01/15 [History] Lisinopril-HCTZ 10-12.5 [Prinzide 10-12.5] 1 each PO DAILY 06/01/15 [History] Omeprazole [PriLOSEC] 20 mg PO BIDAC 06/01/15 [History] Ropinirole [Requip] 3 mg PO BID 06/01/15 [History] Sertraline [Zoloft] 25 mg PO BID 02/14/16 [History] Aspirin 81 mg PO DAILY 06/14/16 [History] HYDROcodone/Acet 5/325 mg [[place] 5-325 mg] 1 tab PO Q8H PRN 06/14/16 [History] Hyoscyamine SL [Levsin SL] 0.125 mg SL TID 06/14/16 [History] Lansoprazole [Prevacid] 15 mg PO DAILY 06/14/16 [History] Ondansetron ODT [Zofran ODT] 4 mg SL Q8H PRN 06/14/16 [History] Sucralfate [Carafate] 1 gm PO BID 06/14/16 [History] Vitamin B Complex [B Complex] 1 each PO DAILY 06/14/16 [History] Allergies gabapentin Allergy (Verified 06/14/16 19:11) Rash terfenadine [From Seldane] Allergy (Verified 06/14/16 19:11) Rash tuberculin,PPD,multi-puncture Allergy (Verified 06/14/16 19:11) Rash Review of Systems All systems PM: reviewed and no additional remarkable complaints except as stated (in the HPI) All systems PM: A 10-system review of systems was performed and is negative for pertinent findings except as documented above in the HPI. General Surgery Exam Initial Vital Signs Temp Pulse Resp BP Pulse Ox 98.1 F 89 18 113/53 94 06/14/16 16:43 06/14/16 16:43 06/14/16 16:43 06/14/16 16:43 06/14/16 16:43 - General physical appearance well developed, well nourished, no distress - Eyes normal ocular movement - ENT normal mucosa, atraumatic, normocephalic - Neck trachea midline - Respiratory normal respiratory effort, clear to auscultation - Cardiovascular Cardiovascular exam: Present: RRR - Abdomen Abdomen general surgery: Present: bowel sounds present, soft, tender Abdominal Tenderness: Present: epigastic, RUQ - Integumentary Integumentary general surgery: Present: warm and dry - Neurologic Present: CN 2-12 grossly intact - Musculoskeletal Present: normal gait, normal posture - Psychiatric Psychiatric general surgery: Present: appropriate, oriented to person, oriented to place, oriented to time, speech is normal, memory intact Exam Initial Vital Signs Temp Pulse Resp BP Pulse Ox 98.1 F 89 18 113/53 94 06/14/16 16:43 06/14/16 16:43 06/14/16 16:43 06/14/16 16:43 06/14/16 16:43 Results - Labs 06/15/16 00:08 06/15/16 00:08 Abnormal lab results WBC 15.1 K/mcL (4.3-11.1) H 06/15/16 00:08 RDW 14.6 % (11.5-14.5) H 06/15/16 00:08 Neutrophils # 11.5 K/mcL (1.6-8.9) H 06/15/16 00:08 PT 14.1 Seconds (9.4-12.1) H 06/14/16 17:52 Potassium 3.2 mEq/L (3.5-4.5) L 06/15/16 00:08 AST 35 Units/L (5-34) H 06/15/16 00:08 Albumin 3.0 g/dL (3.5-5.0) L 06/15/16 00:08 Albumin/Globulin Ratio 1.0 (1.1-2.2) L 06/15/16 00:08 Lipase < 4 Units/L (8-78) L 06/14/16 17:52 Urine Clarity Cloudy (Clear) A 06/14/16 18:00 Ur Specific [place] 1.030 (1.010-1.025) H 06/14/16 18:00 Urine Bilirubin Small (Negative) H 06/14/16 18:00 Ur Leukocyte Esterase Moderate (Negative) H 06/14/16 18:00 Urine Microscopic WBC 5-15 per hpf (0-3) H 06/14/16 18:00 Ur Squamous Epith Cells Many per lpf (None-Few) H 06/14/16 18:00 Ur Culture Indicated? YES (NO) A 06/14/16 18:00 All other labs normal. - Imaging CT scan - abdomen: report reviewed CT scan - pelvis: report reviewed US - abdomen: report reviewed Additional studies: Abdomen/Pelvis CT 06/14/16 17:02 IMPRESSION: 1. Gallbladder distention with mild gallbladder wall thickening and trace perihepatic fluid. The changes may represent acalculous cholecystitis. Sonographic correlation recommended. 2. Small amount of free pelvic fluid. Unless the fluid is related to the gallbladder pathology, the etiology is not readily apparent. 3. Otherwise no acute findings in the abdomen or pelvis. No CT evidence of appendicitis. Scattered colonic diverticulosis with no acute features. D/ / 06/14/2016 17:34:06 Logan Sinclair MD / abhinav Interpreting Provider: Logan Sinclair MD Gallbladder Ultrasound 06/14/16 18:17 IMPRESSION: In keeping with the earlier CT findings, sonographic findings of the gallbladder suspicious for acute cholecystitis. There probable tiny cholelithiasis. Hepatic steatosis. D/ / Polina Zavala MD / Polina Zavala MD Interpreting Provider: Polina Zavala MD Consult Discharge Plan - Plan Referrals: Jose Zaman MD [Primary Care Provider] - - Attending Attestation I examined this patient and my medical decision-making was reviewed with the PACKING HOUSE SUPERVISOR/PA/Advanced Practice Nurse/Resident Physician. I agree with the documented findings, disposition and treatment plan as described except to the extent set forth below.
[2016-06-15] MEDS: 0.9 % Sodium Chloride 1,000 ML IVC SCH (16:10)
[2016-06-15] MEDS: Piperacillin/Tazobactam 3.375 GM in D5% in Water (Mini-Bag+) 100 ML IVPB SCH ×2 (16:11→23:18)
--- NOTE | 2016-06-15 16:35 | Internal Med Progress Note ---
<Jasen Cody - Last Filed: 06/15/16 16:28> Date of Encounter: 06/15/16 Time of Encounter: 16:29 - Assessment and plan (1) Acute acalculous cholecystitis Current Visit: Yes Status: Acute Assessment and plan: PAtietn with acute cholecystitis. supported by imaging and sonography. elevated leukocytosis but dose not meet sepsis criteria. General Surgery was consulted she is active. No history of cardiac issues in the past. she is able to walk a mile without difficulty. Her Revised cardiac risk index score for preoperative risk is 0 which would indicate a 0.4% risk of Major cardiac event. ASA score of 2. Mildly elevated troponin which normalized. No chest pain symptoms. If Echo cardiogram shows no major valve abnormalities and there is no Wall motion abnormalities she will be an acceptable risk for Cholecystectomy. Appreciate General Surgery. (2) Elevated troponin Current Visit: Yes Status: Acute Assessment and plan: mild Trending down. I reviewed her EKG. Sinus rhythm Normal Rate and rhythm with normal AL, QT, and QRS. No ST or T wave abnormalities. No pathologic Q waves. echocardiogram is pending. (3) Leukocytosis Current Visit: Yes Status: Acute Assessment and plan: Likely from acute cholecystitis. trending down dose not meet sepsis criteria at this time. (4) Hypokalemia Current Visit: Yes Status: Acute Assessment and plan: replete (5) DVT prophylaxis Current Visit: Yes Status: Acute Assessment and plan: Sq heparin - Subjective Interval history: No major events overnight. PAtient states that she nuno pain in the upper right quadrant of the abdomen that radiates to the back. It is sharp. It is severe. However it is no controlled with pain medications. she has had Nausea but no vomiting. She denies constipation and diarrhea. No melena or hematochezia. She states that she is active. she is able to climb a flight of steps easily. She is limited to one flight due to her knee pain. She states she can easily walk a mile. Her family affirms this. They states they walked several miles last week on vacation. Patient denies any chest pain or discomfort. She has never had any difficulties with anesthesia. She has never had any episodes of difficult to control bleeding. she dose not have a history of sleep apnea. - Constitutional Vitals: Temp Pulse Resp BP Pulse Ox 98.1 F 66 18 102/56 91 06/15/16 15:05 06/15/16 15:05 06/15/16 15:05 06/15/16 15:05 06/15/16 15:05 General appearance: Present: cooperative, A&O X 3, no acute distress, answers questions appropriately - Head Head exam: Present: atraumatic, normocephalic - Eye Eye exam: Present: PERRL, conjuntiva pink, sclera anicteric Pupils: Present: PERRL - Neck Neck exam general surgery: Present: supple, trachea midline. Absent: lymphadenopathy - Respiratory Respiratory exam: Present: CTAB. Absent: accessory muscle use, rales, rhonchi, wheezes - Cardiovascular Cardiovascular exam: Present: RRR, +S1, +S2. Absent: diastolic murmur, gallop, rubs, systolic murmur - GI/Abdominal GI/Abdominal exam: Present: normal bowel sounds, soft, tenderness (RUQ. No Gaurding. + [place] sign. ), no peritoneal signs. Absent: distended - Extremities Exam Extremities exam: Present: warm, radial pulses palpable and symetrical. Absent : calf tenderness, cyanotic, pedal edema - Skin Skin exam: Present: dry, intact Internal Medicine: Result - Labs CBC & Chem 7: 06/15/16 00:08 06/15/16 00:08 Labs: Cardiac Enzymes 06/15/16 Range/Units 06:37 Troponin I 0.03 (0-0.03) ng/mL - ABG Interpretation ABG results: PT/INR, D-dimer PT 14.1 Seconds (9.4-12.1) H 06/14/16 17:52 - VTE Documentation of Mechanical Device: Intermittent pneumatic compression device Consult Discharge Plan - Plan Referrals: Jose Zaman MD [Primary Care Provider] - <Quirino Robins - Last Filed: 06/15/16 19:09> Date of Encounter: 06/15/16 - Constitutional Vitals: Temp Pulse Resp BP Pulse Ox 98.3 F 77 16 97/56 93 06/15/16 18:38 06/15/16 18:38 06/15/16 18:38 06/15/16 18:38 06/15/16 18:38 Internal Medicine: Result - Labs CBC & Chem 7: 06/15/16 17:42 06/15/16 00:08 Labs: Short CBC 06/15/16 Range/Units 17:42 WBC 10.1 (4.3-11.1) K/mcL Hgb 11.2 L (11.5-15.4) g/dL Hct 35.2 L (35.3-44.9) % Plt Count 173 (140-400) K/mcL Neutrophils # 7.3 (1.6-8.9) K/mcL Cardiac Enzymes 06/15/16 Range/Units 06:37 Troponin I 0.03 (0-0.03) ng/mL - ABG Interpretation ABG results: PT/INR, D-dimer PT 14.1 Seconds (9.4-12.1) H 06/14/16 17:52 - Attending Attestation I examined this patient and my medical decision-making was reviewed with the Resident Physician, Dr. Cdoy. I agree with the documented findings, disposition and treatment plan as described except to the extent set forth below. Patient currently is in no acute distress awake alert oriented. Heart is regular. Lungs clear bilaterally. Abdomen is soft. Plan we will switch to IV Zosyn for cholecystitis. Consult general surgery for possible cholecystectomy. Pain control. IV fluids. She has a high risk of morbidity, mortality and complications due to IV controlled substances for pain.
[2016-06-15] MEDS: *HR* Heparin 5,000 UNIT/ML VIAL SQ SCH (17:26)
[2016-06-15 18:12] LABS: Basophils % 0.4 %; Eosinophils # 0.1 K/mcL (0.0-0.6); Eosinophils % 0.5 %; Hematocrit 35.2 % (35.3-44.9); Hemoglobin 11.2 g/dL (11.5-15.4); Immature Granulocytes % 0.4 % (0-4); Lymphocytes # 1.9 K/mcL (0.6-4.6); Lymphocytes % 18.4 %; Mean Corpuscular HGB Conc 31.8 g/dL (31.6-35.5); Mean Corpuscular Hemoglobin 28.1 pg (28.0-33.3); Mean Corpuscular Volume 88.2 fL (83.0-100.0); Monocytes # 0.8 K/mcL (0.0-1.3); Monocytes % 7.8 %; Neutrophils # 7.3 K/mcL (1.6-8.9); Platelet Count 173 K/mcL (140-400); Red Blood Count 3.99 M/mcL (3.82-4.97); Red Cell Distribution Width 14.6 % (11.5-14.5); Segmented Neutrophils % 72.5 %
[2016-06-16 04:10] LABS: Basophils % 0.2 %; Eosinophils # 0.1 K/mcL (0.0-0.6); Eosinophils % 0.9 %; Hematocrit 32.2 % (35.3-44.9); Hemoglobin 10.2 g/dL (11.5-15.4); Immature Granulocytes % 0.3 % (0-4); Lymphocytes # 1.6 K/mcL (0.6-4.6); Lymphocytes % 18.7 %; Mean Corpuscular HGB Conc 31.7 g/dL (31.6-35.5); Mean Corpuscular Hemoglobin 28.4 pg (28.0-33.3); Mean Corpuscular Volume 89.7 fL (83.0-100.0); Mean Platelet Volume 10.7 fL (9.4-12.4); Monocytes # 0.8 K/mcL (0.0-1.3); Monocytes % 8.8 %; Neutrophils # 6.2 K/mcL (1.6-8.9); Platelet Count 148 K/mcL (140-400); Red Blood Count 3.59 M/mcL (3.82-4.97); Red Cell Distribution Width 14.6 % (11.5-14.5); Segmented Neutrophils % 71.1 %
[2016-06-16 04:16] LABS: BUN/Creatinine Ratio 16 (6-26); Blood Urea Nitrogen 11 mg/dL (7-20); Calcium 8.1 mg/dL (8.6-10.8); Carbon Dioxide 23 mEq/L (19-29); Chloride 108 mEq/L (98-109); Glucose 92 mg/dL (70-99); Osmolality,Calculated 285 (280-300); Potassium 3.7 mEq/L (3.5-4.5); Sodium 138 mEq/L (136-145); eGFR For African Americans > 60 (> 60); eGFR For Non-African Americans > 60 (> 60)
[2016-06-16] MEDS: *HR* Heparin 5,000 UNIT/ML VIAL SQ SCH ×2 (05:08→17:49)
[2016-06-16] MEDS: 0.9 % Sodium Chloride 1,000 ML IVC SCH ×2 (05:13→18:30)
[2016-06-16] MEDS: *HR* Morphine 2 MG/ML SYRINGE IVP PRN ×4 (08:28→23:15)
[2016-06-16] MEDS: Piperacillin/Tazobactam 3.375 GM in D5% in Water (Mini-Bag+) 100 ML IVPB SCH ×2 (08:29→17:50)
--- NOTE | 2016-06-16 11:07 | ECHO - Doppler Report ---
Echocardiogram Name: Cheri Mcclendon Date of Study: 06/15/2016 Date: 1935 Ht: 62.0 in Medical Record#: [id number] Age: 81 Wt: 174.0 lb Gender: Female BSA: 1.8 Order #: [id number] Location: [facility] Room #: 3A21 Reading Physician: Liam Schwartz DO, HANNA WHITTINGTON Heat Treater: Eleanor Dan Ordering Physician: Jarad Charlton DO Primary Physician: Jose Zaman MD Indications: Elevated troponin Impressions: LVEF 60-65%. Normal LV chamber size, wall thickness and function. Mild left ventricular diastolic dysfunction. Normal right ventricular structure and function. Mild pulmonary hypertension. Estimated RVSP is 41 mmHg. No significant valvular dysfunction. Left Ventricular Wall Motion: Rest Echo Findings All wall segments showed normal motion. Findings: Study Quality * Parasternal and apical views acceptable. Gastric views not well obtained. ECG Findings * Normal sinus rhythm. Left Ventricle * LVEF 60-65%. * Normal LV chamber size, wall thickness and function. * Mild left ventricular diastolic dysfunction. Right Ventricle * Normal right ventricular structure and function. Left Atrium * Mildly dilated left atrium. Right Atrium * Normal right atrial size. Interatrial Septum * Interatrial septum not well evaluated. Aortic Valve * Trileaflet aortic valve. * Mildly sclerotic aortic valve leaflets. * No aortic regurgitation. * No aortic stenosis. Mitral Valve * Normal mitral valve structure and function. * No mitral stenosis. * Trace mitral regurgitation. Tricuspid Valve * Normal tricuspid valve structure and function. * Trace tricuspid regurgitation. * Mild pulmonary hypertension. * Estimated RVSP is 41 mmHg. * Estimated RA pressure is presumed to be at least 5 mmHg. Pulmonic Valve * Normal pulmonic valve structure and function. * No pulmonic regurgitation. Aorta * Normally sized aortic root. Pericardium * The pericardium appears normal. IVC * The IVC is not well evaluated. Pulmonary Artery * Normal visualized portions of the main pulmonary artery. History Hypercholesteremia Family History of CAD Measurements: BP: 102/ 56 2D Normal Values RVIDd: 3.10 cm <2.7 cm IVSd: 1.00 cm 0.6 - 1.0 cm LVIDd: 4.30 cm 3.7 - 5.6 cm LVPWd: .80 cm 0.6 - 1.1 cm LVIDs: 2.70 cm 1.5 - 3.6 cm AO: 2.20 cm < 4.0 cm LA: 3.60 cm 2.0 - 4.0cm %FS: 37.20 cm >25 % LA volume: 60 Mitral Valve Peak E:1.07 m/sec Peak A:1.05 m/sec E/A Ratio:1 Peak E' Lat Patrice:12.4 cm/s Peak E' Med Patrice:9.75 cm/s E/E' Lat Ratio:8.6 E/E' Med Ratio:11 Tricuspid Valve TV Regurg Peak Grad: 36.00mmHg TV Regurg Peak Patrice: 2.99m/sec Updated by Liam Schwartz DO, FACRitchie, HANNA, HUMBERTO on 06/16/2016 11:00:39 AM electronically signed on 06/16/2016 11:01:12 AM with status of Final Wall Motion Huitron: 1=Normal, 2=Hypokinesis, 3=Akinesis, 4=Dyskinesis, 5=Aneurysmal, 6=Hyperkinetic, X=Not Visualized (Blank)=Missing
--- NOTE | 2016-06-16 11:43 | Internal Med Progress Note ---
<Jasen Cody - Last Filed: 06/16/16 11:40> Date of Encounter: 06/16/16 Time of Encounter: 11:40 - Assessment and plan (1) Acute acalculous cholecystitis Current Visit: Yes Status: Acute Assessment and plan: PAtient with acute cholecystitis. supported by imaging and sonography. elevated leukocytosis but dose not meet sepsis criteria. General Surgery was consulted she is active. No history of cardiac issues in the past. she is able to walk a mile without difficulty. Her Revised cardiac risk index score for preoperative risk is 0 which would indicate a 0.4% risk of Major cardiac event. ASA score of 2. Mildly elevated troponin which normalized. No chest pain symptoms. If Echo cardiogram shows no major valve abnormalities and there is no Wall motion abnormalities she will be an acceptable risk for Cholecystectomy. Appreciate General Surgery. 06/16/16 PAtient is stable. No major abnormalities on echocardiogram. Patient is acceptable risk for surgery. Appreciate Surgery following along. Possible Cholecystectomy today. (2) Elevated troponin Current Visit: Yes Status: Acute Assessment and plan: mild peak0.05 I reviewed her EKG. Sinus rhythm Normal Rate and rhythm with normal MO, QT, and QRS. No ST or T wave abnormalities. No pathologic Q waves. echocardiogram shows normal EF with no WMA and no major valvular dysfunction. (3) Leukocytosis Current Visit: Yes Status: Acute Assessment and plan: resolved (4) Hypokalemia Current Visit: Yes Status: Acute Assessment and plan: resolved (5) DVT prophylaxis Current Visit: Yes Status: Acute Assessment and plan: Sq heparin - Subjective Interval history: No major events overnight. Patietn complains of continued RUQ pain. However tolerable with recent pain medicaiton s. She denies N/V. She did have one loose bowel movement that wass non bloody. She has no further complaints or concerns at this time. - Constitutional Vitals: Temp Pulse Resp BP Pulse Ox 98.5 F 69 16 110/69 93 06/16/16 10:37 06/16/16 10:37 06/16/16 10:37 06/16/16 10:37 06/16/16 10:37 General appearance: Present: cooperative, A&O X 3, no acute distress, answers questions appropriately - Head Head exam: Present: atraumatic, normocephalic - Eye Eye exam: Present: PERRL, conjuntiva pink, sclera anicteric Pupils: Present: PERRL - Neck Neck exam general surgery: Present: supple, trachea midline. Absent: lymphadenopathy - Respiratory Respiratory exam: Present: CTAB. Absent: accessory muscle use, rales, rhonchi, wheezes - Cardiovascular Cardiovascular exam: Present: RRR, +S1, +S2. Absent: diastolic murmur, gallop, rubs, systolic murmur - GI/Abdominal GI/Abdominal exam: Present: normal bowel sounds, soft, tenderness (RUQ), no peritoneal signs. Absent: distended - Extremities Exam Extremities exam: Present: warm, radial pulses palpable and symetrical. Absent : calf tenderness, cyanotic, pedal edema - Skin Skin exam: Present: dry, intact Internal Medicine: Result - Labs CBC & Chem 7: 06/16/16 03:34 06/16/16 03:34 Labs: Short CBC 06/15/16 06/16/16 Range/Units 17:42 03:34 WBC 10.1 8.7 (4.3-11.1) K/mcL Hgb 11.2 L 10.2 L (11.5-15.4) g/dL Hct 35.2 L 32.2 L (35.3-44.9) % Plt Count 173 148 (140-400) K/mcL Neutrophils # 7.3 6.2 (1.6-8.9) K/mcL BMP 06/16/16 03:34 Sodium 138 Potassium 3.7 Chloride 108 Carbon Dioxide 23 BUN 11 Creatinine 0.70 Glucose 92 Calcium 8.1 L - ABG Interpretation ABG results: PT/INR, D-dimer PT 14.1 Seconds (9.4-12.1) H 06/14/16 17:52 - VTE Documentation of Mechanical Device: Intermittent pneumatic compression device Consult Discharge Plan - Plan Referrals: Jose Zaman MD [Primary Care Provider] - <Quirino Robins - Last Filed: 06/16/16 17:52> Date of Encounter: 06/16/16 - Constitutional Vitals: Temp Pulse Resp BP Pulse Ox 98.5 F 75 16 124/89 93 06/16/16 17:04 06/16/16 17:04 06/16/16 17:04 06/16/16 17:04 06/16/16 17:04 Internal Medicine: Result - Labs CBC & Chem 7: 06/16/16 03:34 06/16/16 03:34 Labs: Short CBC 06/15/16 06/16/16 Range/Units 17:42 03:34 WBC 10.1 8.7 (4.3-11.1) K/mcL Hgb 11.2 L 10.2 L (11.5-15.4) g/dL Hct 35.2 L 32.2 L (35.3-44.9) % Plt Count 173 148 (140-400) K/mcL Neutrophils # 7.3 6.2 (1.6-8.9) K/mcL BMP 06/16/16 03:34 Sodium 138 Potassium 3.7 Chloride 108 Carbon Dioxide 23 BUN 11 Creatinine 0.70 Glucose 92 Calcium 8.1 L - ABG Interpretation ABG results: PT/INR, D-dimer PT 14.1 Seconds (9.4-12.1) H 06/14/16 17:52 - Impressions Impressions Cholangiogram,Operative 06/16/16 16:02 IMPRESSION: Questionable small amount of extravasated contrast in the right upper quadrant status post cholecystectomy. Correlate with the operative note. D/ / Jose Merritt MD / Jose Merritt MD Interpreting Provider: Jose Merritt MD - Attending Attestation I examined this patient and my medical decision-making was reviewed with the Resident Physician, Dr. Cody. I agree with the documented findings, disposition and treatment plan as described except to the extent set forth below. The patient is medically clear for surgery. We will continue with IV antibiotics. Nothing by mouth. IV morphine for pain. On exam she is in no acute distress. Heart exam reveals regular rate and rhythm S1-S2 no murmurs. Abdomen is soft and mildly tender to palpation with no guarding or rebound tenderness. The patient is at high risk for morbidity, mortality and complications due to surgery today and treatment with IV controlled substances.
--- NOTE | 2016-06-16 14:11 | Anesthesia Evaluation PreOp ---
Date of Encounter: 06/16/16 Time of Encounter: 14:09 - Past History Planned Operation: lap kvng Cardiac History: HTN, Hyperlipidemia, Other (elevated troponins, Echo shows EF 60-65%, no wall motion abnormalities) Pulmonary History: Denies Any Significant HX SPONSORSHIP COORDINATOR History: Denies Any Significant HX Other Medical History: GERD Anesthesia History: No Prior Anesthetic Complications, Past Anesthesia ( orthopedic and spine sx) Alcohol Use: none Drug use: none Medications and Allergies Atorvastatin [Lipitor] 10 mg PO HS 06/01/15 [History] Cholecalciferol (Vitamin D3) [Vitamin D] 1,000 unit PO DAILY 06/01/15 [History] Lisinopril-HCTZ 10-12.5 [Prinzide 10-12.5] 1 each PO DAILY 06/01/15 [History] Omeprazole [PriLOSEC] 20 mg PO BIDAC 06/01/15 [History] Ropinirole [Requip] 3 mg PO BID 06/01/15 [History] Sertraline [Zoloft] 25 mg PO BID 02/14/16 [History] Aspirin 81 mg PO DAILY 06/14/16 [History] HYDROcodone/Acet 5/325 mg [Harris 5-325 mg] 1 tab PO Q8H PRN 06/14/16 [History] Hyoscyamine SL [Levsin SL] 0.125 mg SL TID 06/14/16 [History] Lansoprazole [Prevacid] 15 mg PO DAILY 06/14/16 [History] Ondansetron ODT [Zofran ODT] 4 mg SL Q8H PRN 06/14/16 [History] Sucralfate [Carafate] 1 gm PO BID 06/14/16 [History] Vitamin B Complex [B Complex] 1 each PO DAILY 06/14/16 [History] Allergies gabapentin Allergy (Verified 06/14/16 19:11) Rash terfenadine [From Seldane] Allergy (Verified 06/14/16 19:11) Rash tuberculin,PPD,multi-puncture Allergy (Verified 06/14/16 19:11) Rash - Meds/Allergy Pre-op Review Medications Reviewed: Yes Allergies Reviewed: Yes Beta Blockers on Current Med List: No Anesthesia Results - Labs 06/16/16 03:34 06/16/16 03:34 Anesthesia Exam Selected Entries 06/16/16 10:37 Temperature 98.5 F Pulse Rate 69 Respiratory Rate 16 Blood Pressure 110/69 O2 Sat by Pulse Oximetry 93 Weight: 80kg NPO (# of Hours): >8 Pain Scale: 0 Pain Scale Used: Numeric (1 - 10) - HEENT Pupil (Motor): EOMI Mallampati: II Teeth: Missing Oral Opening: Greater than 3 - SPONSORSHIP COORDINATOR LOC: Oriented SPONSORSHIP COORDINATOR Motor: Normal RUE, Normal LUE, Normal RLE, Normal LLE, Normal Face SPONSORSHIP COORDINATOR Sensory: Normal: RUE, LUE, RLE, LLE, Face - Cardiac Rhythm: Regular Murmur: None - Pulmonary Breath Sounds: bilateral Clear Respiratory Effort: Symmetrical Anesthesia Assess/Plan ASA Score: 2 Modified [place] Scale for Level of Consciousness: Cooperative, oriented, and tranquil Anesthetic Plan: General Monitoring Plan: Standard Monitors Recovery Plan: PACU (Discussed risks of GA, questions answered and agrees to proceed.)
[2016-06-16] MEDS ORDERED: Lidocaine -MPF 2% 2 ML VIAL ONE ×2 (14:36→14:50)
[2016-06-16] MEDS ORDERED: *HR* Succinylcholine 200 MG/10 ML VIAL IVP ONE (14:36)
[2016-06-16] MEDS ORDERED: *HR* Rocuronium Bromide 50 MG/5 ML VIAL ONE ×2 (14:36→14:50)
[2016-06-16] MEDS ORDERED: *HR* FentaNYL (PF) 100 MCG/2 ML VIAL ONE ×2 (14:37→14:50)
[2016-06-16] MEDS ORDERED: *HR* Propofol 200 MG/20 ML VIAL IVP ONE ×2 (14:37→14:51)
[2016-06-16] MEDS ORDERED: *HR* Midazolam HCl 2 MG/2 ML VIAL ONE (14:49)
[2016-06-16] MEDS ORDERED: Ondansetron 4 MG/2 ML VIAL ONE ×3 (14:50→17:06)
--- NOTE | 2016-06-16 15:43 | Operative Note ---
Date of procedure: 06/16/16 Pre-op diagnosis: Acalculous cholecystitis Post-op diagnosis: same Procedure: laparoscopic cholecystectomy with cholangiogram Anesthesia: DELICIA Surgeon: Guillaume Perry Estimated blood loss (cc): 5 Specimen: GB Condition: stable Disposition: same day Procedure in Detail: After informed consent this patient was taken the operating room placed supine position. After adequate sedation anesthesia the abdomen was prepped and draped. A proper timeout was performed. Two towel clamps are placed at the umbilicus and a Veres needle was inserted into the abdomen. A 5 mm incision was made at the umbilicus. A 12 mm incision was made in the subxiphoid region. Two 5 mm incisions were made in the right upper quadrant that were 4 finger breadths and 6 finger breadths below the costal margin. The gallbladder was identified, retracted anteriorly and cephalad, and the infundibulum was skeletonized. The cystic duct was easily identified and was dissected free. A ductotomy was created in the cystic duct. A taut catheter was placed within the cystic duct and clipped. A cholangiogram was performed. Contrast filled the cystic duct, common hepatic duct, hepatic radicles, and the distal common bile duct. There was flow of contrast into the duodenum. Once this was confirmed the clippers removed, the taut catheter was removed as well, and the cystic duct was clipped distally. The cystic duct was then transected with scissors. The gallbladder was resected off the liver surface. There was excellent hemostasis. The gallbladder was then retrieved through the 12 mm cannula site. At this point the abdomen was suctioned dry and the pneumoperitoneum was then evacuated. All ports were removed. The 12 mm cannula site was closed with an 0 Vicryl suture in [id number] fashion. The skin was closed with 4-0 Vicryl suture. Dermabond was placed as well. All instrument counts and needle counts are correct in the operation. She tolerated the procedure well and was transferred to the PACU in stable condition.
[2016-06-16] MEDS ORDERED: CefOXitin 2,000 MG VIAL IVPB ONE (15:55)
[2016-06-16] MEDS ORDERED: EPHEDrine 50 MG/ML VIAL ONE (15:58)
[2016-06-16] MEDS ORDERED: *HR* Labetalol 100 MG/20 ML MDV IVP PRN (16:02)
[2016-06-16] MEDS ORDERED: Ondansetron 4 MG/2 ML VIAL IVP PRN (16:02)
[2016-06-16] MEDS ORDERED: *HR* HYDROmorphone (PF) 1 MG/ML SYRINGE IVP PRN (16:02)
[2016-06-16] MEDS ORDERED: Dexamethasone 4 MG/ML VIAL ONE ×2 (16:09→17:06)
[2016-06-16] MEDS ORDERED: Neostigmine Methylsulfate 3 MG/3 ML SYRINGE ONE ×2 (16:18→17:06)
[2016-06-16] MEDS ORDERED: Ketorolac 30 MG/ML VIAL ONE (16:19)
--- NOTE | 2016-06-16 17:00 | Anesthesia Evaluation Post Op ---
Date of Encounter: 06/16/16 Time of Encounter: 17:00 - Vital Signs Vital Signs: Vital Signs - Last 8 Hours Temp Pulse Resp BP Pulse Ox 06/16/16 16:54 77 16 114/86 94 06/16/16 16:44 71 16 116/60 92 06/16/16 16:34 98.0 F 73 16 125/65 92 06/16/16 10:37 98.5 F 69 16 110/69 93 Intake and Output 06/16/16 06/16/16 06/16/16 07:59 15:59 23:59 Intake Total 1100 / 1100 490 / 490 Output Total 0 / 0 350 / 350 80 / 80 Balance 1100 / 1100 140 / 140 -80 / -80 Intake: IV Fluids 1100 / 1100 490 / 490 0.9 % Sodium Chloride 1, 1000 / 1000 390 / 390 000 ML @ 75 mls/hr IVC . [id number] KEYSHA Rx#: [id number] Zosyn 3.375 GM In 100 / 100 100 / 100 Dextrose 5% (Minibag+) 100 ML 100 ML @ 25 mls/hr IVPB Q8HR KEYSHA Rx#: [id number] Oral 0 / 0 0 / 0 Output: Urine 0 / 0 350 / 350 Estimated Blood Loss 50 / 50 Wound Drainage 30 / 30 Other: Meal NPO Stool Consistency liquid Stool Color Brown # Bowel Movements 0 0 Weight 80.428 kg Blood Glucose* 94 94 Patient Weight 06/16/16 23:59 Weight 80.428 kg - Lungs Lungs: Clear Ascult./Percussion - Airway Airway: Non-obstructed - Cardiovascular Regular Rate, Baseline Rhythm - Mental Status Mental Status: Alert & Oriented, Answers Appropriately - Pain Pain Scale: 0 Pain Scale used: Numeric (1 - 10) - Nausea Vomiting Nausea Vomiting: Not Present - Hydration Hydration: Tolerates oral liquids - Discharge PostOp Status: Transfer Patient to floor
[2016-06-16] MEDS ORDERED: Naloxone 0.4 MG/ML INJ IVP PRN (17:25)
--- NOTE | 2016-06-16 17:37 | Electrocardiograph Report ---
[place] [id number] Test Date: 2016-06-15 Pat Name: Cheri Mcclendon Department: 115 Room: 3A21 Gender: F Medical Information Specialist: LATOYA : 1935 Requested By: Jarad Charlton Order Number: [id number] Reading MD: Alcira Ferro Measurements Intervals [place] Rate: 68 P: 46 AK: 163 QRS: 15 QRSD: 84 T: 1 QT: 417 QTc: 434 Interpretive Statements SINUS RHYTHM POSSIBLE LEFT ATRIAL ENLARGEMENT Electronically Signed On 06-16-2016 17:35:56 EDT by Alcira Ferro
[2016-06-16] MEDS: *HR* OxyCODONE/APAP 10/325 TABLET PO PRN (18:24)
[2016-06-17] MEDS: Piperacillin/Tazobactam 3.375 GM in D5% in Water (Mini-Bag+) 100 ML IVPB SCH ×4 (00:15→23:25)
[2016-06-17] MEDS: *HR* OxyCODONE/APAP 10/325 TABLET PO PRN ×3 (00:40→14:55)
[2016-06-17 05:29] LABS: Basophils % 0.1 %; Hemoglobin 10.7 g/dL (11.5-15.4); Immature Granulocytes % 0.5 % (0-4); Lymphocytes # 0.5 K/mcL (0.6-4.6); Lymphocytes % 5.4 %; Mean Corpuscular HGB Conc 31.5 g/dL (31.6-35.5); Mean Corpuscular Hemoglobin 28.1 pg (28.0-33.3); Mean Corpuscular Volume 89.2 fL (83.0-100.0); Mean Platelet Volume 10.6 fL (9.4-12.4); Monocytes # 0.8 K/mcL (0.0-1.3); Monocytes % 7.9 %; Neutrophils # 8.7 K/mcL (1.6-8.9); Platelet Count 174 K/mcL (140-400); Red Blood Count 3.81 M/mcL (3.82-4.97); Red Cell Distribution Width 14.6 % (11.5-14.5); Segmented Neutrophils % 86.1 %
[2016-06-17 05:47] LABS: BUN/Creatinine Ratio 15 (6-26); Blood Urea Nitrogen 11 mg/dL (7-20); Calcium 8.4 mg/dL (8.6-10.8); Carbon Dioxide 25 mEq/L (19-29); Chloride 108 mEq/L (98-109); Glucose 103 mg/dL (70-99); Osmolality,Calculated 292 (280-300); Potassium 4.1 mEq/L (3.5-4.5); Sodium 141 mEq/L (136-145); eGFR For African Americans > 60 (> 60); eGFR For Non-African Americans > 60 (> 60)
[2016-06-17] MEDS: *HR* Heparin 5,000 UNIT/ML VIAL SQ SCH ×2 (06:24→17:17)
[2016-06-17] MEDS: 0.9 % Sodium Chloride 1,000 ML IVC SCH ×2 (08:16→21:34)
--- NOTE | 2016-06-17 08:26 | General Surgery Progress Note ---
Date of Encounter: 06/17/16 Time of Encounter: 07:00 - Assessment and Plan (1) Acute acalculous cholecystitis Current Visit: Yes Status: Acute The patient is status post laparoscopic cholecystectomy. Her white blood cell count is normalized. She has a Seven-Jo drain that is draining a combination of serosanguineous and bilious material. At this point I would maintain IV antibiotic therapy and Seven-Jo drainage. Subjective Narrative: The patient has had laparoscopic cholecystectomy for acute cholecystitis. She has a drain in place. The drain put out 190 and 200 mL over the last 2 shifts. The drain is serosanguineous but foams with shaking and there appears to be a small amount of bile in the Seven-Jo drain. We will continue to maintain the drain in the right upper quadrant. Her white blood cell count is normalized and her preoperative pain is gone. She has mild incisional pain. Incisions look good. At this point I would continue IV antibiotic therapy as well as Seven-Jo drainage. Objective Vital Signs - Last 8 Hours Temp Pulse Resp BP Pulse Ox 06/17/16 06:58 98.3 F 78 16 113/63 93 06/17/16 04:23 98.6 F 72 18 124/57 93 Intake and Output 06/16/16 06/17/16 06/17/16 23:59 07:59 15:59 Intake Total 0 / 0 100 / 100 1000 / 1000 Output Total 500 / 500 300 / 300 Balance -500 / -500 -200 / -200 1000 / 1000 Intake: IV Fluids 100 / 100 1000 / 1000 0.9 % Sodium Chloride 1, 1000 / 1000 000 ML @ 75 mls/hr IVC . [id number] KEYSHA Rx#: [id number] Zosyn 3.375 GM In 100 / 100 Dextrose 5% (Minibag+) 100 ML 100 ML @ 25 mls/hr IVPB Q8HR KEYSHA Rx#: [id number] Oral 0 / 0 0 / 0 Output: Urine 200 / 200 100 / 100 Estimated Blood Loss 50 / 50 Wound Drainage 250 / 250 200 / 200 Right Lower Abdomen 190 / 190 200 / 200 Other: Weight 82.781 kg Blood Glucose* 108 104 Patient Weight 06/17/16 23:59 Weight 82.781 kg - General physical appearance chronically ill - Respiratory normal expansion, normal respiratory effort, clear to percussion, clear to auscultation - Cardiovascular Cardiovascular exam: Present: RRR, no murmurs/rubs/gallops - Abdomen Abdomen: Present: bowel sounds present, soft, non tender - Incision Incision: Present: clean and dry - Psychiatric oriented to time, oriented to person, oriented to place, speech is normal, memory intact - Labs 06/17/16 03:40 06/17/16 03:40 Diabetes panel 06/17/16 Range/Units 03:40 Sodium 141 (136-145) mEq/L Potassium 4.1 (3.5-4.5) mEq/L Chloride 108 (98-109) mEq/L Carbon Dioxide 25 (19-29) mEq/L BUN 11 (7-20) mg/dL Creatinine 0.71 (0.57-1.11) mg/dL Glucose 103 H (70-99) mg/dL Calcium 8.4 L (8.6-10.8) mg/dL Calcium panel 06/17/16 Range/Units 03:40 Calcium 8.4 L (8.6-10.8) mg/dL Pituitary panel 06/17/16 Range/Units 03:40 Sodium 141 (136-145) mEq/L Potassium 4.1 (3.5-4.5) mEq/L Chloride 108 (98-109) mEq/L Carbon Dioxide 25 (19-29) mEq/L BUN 11 (7-20) mg/dL Creatinine 0.71 (0.57-1.11) mg/dL Glucose 103 H (70-99) mg/dL Calcium 8.4 L (8.6-10.8) mg/dL Adrenal panel 06/17/16 Range/Units 03:40 Sodium 141 (136-145) mEq/L Potassium 4.1 (3.5-4.5) mEq/L Chloride 108 (98-109) mEq/L Carbon Dioxide 25 (19-29) mEq/L BUN 11 (7-20) mg/dL Creatinine 0.71 (0.57-1.11) mg/dL Glucose 103 H (70-99) mg/dL Calcium 8.4 L (8.6-10.8) mg/dL - VTE Documentation of Mechanical Device: Venous foot pump, device Consult Discharge Plan - Plan Referrals: Jose Zaman MD [Primary Care Provider] -
[2016-06-17 12:30] LABS: Bilirubin,Urine Small (Negative); Blood,Urine Negative (Negative); Clarity,Urine Clear (Clear); Color,Urine Dark Yellow (Yellow); Glucose,Urine (UA) Normal (Normal); Ketones,Urine 15 mg/dL (Negative); Leukocyte Esterase,Urine Negative (Negative); Nitrite,Urine Negative (Negative); Protein,Urine Trace mg/dL (Neg-Trace); Specific Gravity,Urine > 1.030 (1.010-1.025); Urobilinogen,Urine Normal (Normal)
[2016-06-17 12:33] LABS: Bacteria,Urine None Seen per hpf (None-Few); Hyaline Casts,Urine None Seen per lpf (None-Few); Squamous Epithelial Cell,Urine Many per lpf (None-Few); WBC,Urine 0-3 per hpf (0-3)
[2016-06-17] MEDS: Acetaminophen 325 MG TABLET PO PRN (23:26)
[2016-06-18] MEDS: *HR* Morphine 2 MG/ML SYRINGE IVP PRN (03:44)
[2016-06-18] MEDS: *HR* Heparin 5,000 UNIT/ML VIAL SQ SCH ×2 (05:36→16:46)
[2016-06-18] MEDS: Acetaminophen 325 MG TABLET PO PRN (09:17)
[2016-06-18] MEDS: Piperacillin/Tazobactam 3.375 GM in D5% in Water (Mini-Bag+) 100 ML IVPB SCH ×3 (09:17→23:41)
--- NOTE | 2016-06-18 09:35 | General Surgery Progress Note ---
Date of Encounter: 06/18/16 Time of Encounter: 09:00 - Assessment and Plan (1) Acute acalculous cholecystitis Current Visit: Yes Status: Acute The patient is status post laparoscopic cholecystectomy. Her white blood cell count is normalized. She has a Seven-Jo drain that is draining a combination of serosanguineous and bilious material. At this point I would maintain IV antibiotic therapy and Seven-Jo drainage. 06/18/2016. Postoperative day 2 laparoscopic cholecystectomy. Seven-Jo drainage is still high and bile tinged. I would maintain the Seven-Jo drain and antibiotics at this point. We will continue to follow her clinically. Subjective Narrative: The patient is postoperative day #2 from laparoscopic cholecystectomy. The drain in the right upper quadrant still has high drainage with 130 and 220 mL over the last 2 shifts. This is serosanguineous with bile tinge. At this point I would continue the antibiotics and Seven-Jo drainage. We will watch for the drainage to fall off Objective Vital Signs - Last 8 Hours Temp Pulse Resp BP Pulse Ox 06/18/16 07:00 98.7 F 73 20 109/63 97 06/18/16 03:31 98.2 F 72 16 108/66 96 Intake and Output 06/17/16 06/18/16 06/18/16 23:59 07:59 15:59 Intake Total 1560 / 1560 400 / 400 360 / 360 Output Total 230 / 230 440 / 440 Balance 1330 / 1330 -40 / -40 360 / 360 Intake: IV Fluids 1100 / 1100 100 / 100 0.9 % Sodium Chloride 1, 1000 / 1000 000 ML @ 75 mls/hr IVC . [id number] KEY[facility] Rx#: [id number] Zosyn 3.375 GM In 100 / 100 100 / 100 Dextrose 5% (Minibag+) 100 ML 100 ML @ 25 mls/hr IVPB Q8HR KEY[facility] Rx#: [id number] Oral 460 / 460 300 / 300 360 / 360 Output: Urine 100 / 100 200 / 200 Wound Drainage 130 / 130 240 / 240 Right Lower Abdomen 130 / 130 240 / 240 Other: Meal Dinner Breakfast Weight 83.143 kg Patient Weight 06/18/16 23:59 Weight 83.143 kg - General physical appearance no pain - Respiratory normal expansion, normal respiratory effort, clear to percussion, clear to auscultation - Cardiovascular Cardiovascular exam: Present: RRR, no murmurs/rubs/gallops - Abdomen Abdomen: Present: bowel sounds present, soft, non tender - Incision Incision: Present: clean and dry - Psychiatric oriented to time, oriented to person, oriented to place, speech is normal, memory intact - Labs 06/17/16 03:40 06/17/16 03:40 - VTE Documentation of Mechanical Device: Venous foot pump, device Consult Discharge Plan - Plan Referrals: Jose Zaman MD [Primary Care Provider] -
[2016-06-18] MEDS: 0.9 % Sodium Chloride 1,000 ML IVC SCH ×2 (11:06→23:41)
[2016-06-18] MEDS: *HR* OxyCODONE/APAP 10/325 TABLET PO PRN ×2 (11:28→20:06)
--- NOTE | 2016-06-18 12:18 | Internal Med Progress Note ---
Date of Encounter: 06/17/16 Time of Encounter: 10:00 - Assessment and plan (1) Acalculous cholecystitis Current Visit: Yes Status: Acute Assessment and plan: POD#1 laparoscopic cholecystectomy, recovering well. Pain control with IV morphine. Continue with IV fluids. Nothing by mouth. Appreciate general surgery input. Continue with IV meropenem for cholecystitis. She is at high risk for morbidity mortality and complications due to treatment with IV controlled substances. (2) GERD (gastroesophageal reflux disease) Current Visit: Yes Status: Chronic Assessment and plan: IV Protonix. Qualifiers: Esophagitis presence: esophagitis presence not specified Qualified Code(s) : K21.9 - Gastro-esophageal reflux disease without esophagitis (3) DVT prophylaxis Current Visit: Yes Status: Acute Assessment and plan: Sq heparin (4) Essential hypertension Current Visit: Yes Status: Acute Assessment and plan: Blood pressure is within normal limits off antihypertensives. We will hold lisinopril and HCTZ for now. - Subjective Interval history: 06/17/2016: Patient is status post laparoscopic cholecystectomy yesterday. Currently reports moderate right upper quadrant pain. She has mild associated nausea and no vomiting. - Constitutional Vitals: Temp Pulse Resp BP Pulse Ox 98.3 F 72 18 117/72 97 06/18/16 11:46 06/18/16 11:46 06/18/16 11:46 06/18/16 11:46 06/18/16 11:46 General appearance: Present: cooperative, A&O X 3, no acute distress, answers questions appropriately - Eye Eye exam: Present: PERRL, conjuntiva pink, sclera anicteric Pupils: Present: PERRL - Respiratory Respiratory exam: Present: CTAB. Absent: accessory muscle use, rales, rhonchi, wheezes - Cardiovascular Cardiovascular exam: Present: RRR, +S1, +S2. Absent: diastolic murmur, gallop, rubs, systolic murmur - GI/Abdominal GI/Abdominal exam: Present: diminished bowel sounds, distended, soft, tenderness (MORELIA drain present in the right upper quadrant draining 80 mL of bloody fluid), no peritoneal signs - Extremities Exam Extremities exam: Present: warm, radial pulses palpable and symetrical. Absent : calf tenderness, cyanotic, pedal edema - Skin Skin exam: Present: dry, intact Internal Medicine: Result - Labs CBC & Chem 7: 06/17/16 03:40 06/17/16 03:40 Labs: Urine 06/17/16 Range/Units 12:00 Urine Color Dark Yellow (Yellow) Urine Clarity Clear (Clear) Urine pH 6.0 (5.0-8.0) pH Units Ur Specific Phillips > 1.030 H (1.010-1.025) Urine Protein Trace (Neg-Trace) mg/dL Urine Glucose (UA) Normal (Normal) mg/dL - ABG Interpretation ABG results: PT/INR, D-dimer PT 14.1 Seconds (9.4-12.1) H 06/14/16 17:52 - VTE Documentation of Mechanical Device: Venous foot pump, device Consult Discharge Plan - Plan Referrals: Jose Zaman MD [Primary Care Provider] -
[2016-06-18 12:49] LABS: Basophils % 0.2 %; Eosinophils # 0.1 K/mcL (0.0-0.6); Eosinophils % 1.4 %; Hematocrit 33.5 % (35.3-44.9); Hemoglobin 10.6 g/dL (11.5-15.4); Immature Granulocytes % 0.3 % (0-4); Lymphocytes # 0.8 K/mcL (0.6-4.6); Lymphocytes % 11.6 %; Mean Corpuscular HGB Conc 31.6 g/dL (31.6-35.5); Mean Corpuscular Volume 88.6 fL (83.0-100.0); Mean Platelet Volume 9.7 fL (9.4-12.4); Monocytes # 0.6 K/mcL (0.0-1.3); Monocytes % 8.8 %; Platelet Count 182 K/mcL (140-400); Red Blood Count 3.78 M/mcL (3.82-4.97); Red Cell Distribution Width 14.6 % (11.5-14.5); Segmented Neutrophils % 77.7 %
--- NOTE | 2016-06-18 12:54 | Physician Discharge Referral ---
- Diagnosis (1) Acalculous cholecystitis Status: Acute (2) GERD (gastroesophageal reflux disease) Status: Chronic (3) DVT prophylaxis Status: Acute (4) Essential hypertension Status: Acute - Transfer Medications Home Medications: Atorvastatin [Lipitor] 10 mg PO HS 06/01/15 [History] Cholecalciferol (Vitamin D3) [Vitamin D] 1,000 unit PO DAILY 06/01/15 [History] Lisinopril-HCTZ 10-12.5 [Prinzide 10-12.5] 1 each PO DAILY 06/01/15 [History] Omeprazole [PriLOSEC] 20 mg PO BIDAC 06/01/15 [History] Ropinirole [Requip] 3 mg PO BID 06/01/15 [History] Sertraline [Zoloft] 25 mg PO BID 02/14/16 [History] Aspirin 81 mg PO DAILY 06/14/16 [History] HYDROcodone/Acet 5/325 mg [[place] 5-325 mg] 1 tab PO Q8H PRN 06/14/16 [History] Hyoscyamine SL [Levsin SL] 0.125 mg SL TID 06/14/16 [History] Lansoprazole [Prevacid] 15 mg PO DAILY 06/14/16 [History] Ondansetron ODT [Zofran ODT] 4 mg SL Q8H PRN 06/14/16 [History] Sucralfate [Carafate] 1 gm PO BID 06/14/16 [History] Vitamin B Complex [B Complex] 1 each PO DAILY 06/14/16 [History] Allergies/Adverse Reactions: Allergies gabapentin Allergy (Verified 06/14/16 19:11) Rash terfenadine [From Seldane] Allergy (Verified 06/14/16 19:11) Rash tuberculin,PPD,multi-puncture Allergy (Verified 06/14/16 19:11) Rash - Respiratory Orders Smoking Cessation: Smoking cessation has been advised. For more information, call the [place] Tobacco Quit Line at 4-012-TAYM-NOW. CERTIFICATION: I certify that the transfer of the above named patient to an Extended Care Facility is necessary for the continuing treatment of the diagnosis listed. The above information is true and accurate reflection of patient's current condition. Confidential - Redisclosure prohibited without a patient's written consent.
[2016-06-18 13:12] LABS: BUN/Creatinine Ratio 14 (6-26); Blood Urea Nitrogen 9 mg/dL (7-20); Calcium 8.5 mg/dL (8.6-10.8); Carbon Dioxide 26 mEq/L (19-29); Chloride 107 mEq/L (98-109); Glucose 98 mg/dL (70-99); Magnesium 1.6 mg/dL (1.6-2.6); Osmolality,Calculated 287 (280-300); Potassium 3.4 mEq/L (3.5-4.5); Sodium 139 mEq/L (136-145); eGFR For African Americans > 60 (> 60); eGFR For Non-African Americans > 60 (> 60)
[2016-06-19] MEDS: *HR* OxyCODONE/APAP 10/325 TABLET PO PRN ×3 (04:19→16:05)
[2016-06-19 05:08] LABS: Basophils % 0.4 %; Eosinophils # 0.1 K/mcL (0.0-0.6); Eosinophils % 2.5 %; Hematocrit 30.7 % (35.3-44.9); Hemoglobin 9.9 g/dL (11.5-15.4); Immature Granulocytes % 0.4 % (0-4); Lymphocytes # 0.8 K/mcL (0.6-4.6); Lymphocytes % 14.3 %; Mean Corpuscular HGB Conc 32.2 g/dL (31.6-35.5); Mean Corpuscular Hemoglobin 28.9 pg (28.0-33.3); Mean Corpuscular Volume 89.5 fL (83.0-100.0); Mean Platelet Volume 10.3 fL (9.4-12.4); Monocytes # 0.7 K/mcL (0.0-1.3); Monocytes % 12.2 %; Neutrophils # 3.9 K/mcL (1.6-8.9); Platelet Count 165 K/mcL (140-400); Red Blood Count 3.43 M/mcL (3.82-4.97); Red Cell Distribution Width 14.7 % (11.5-14.5); Segmented Neutrophils % 70.2 %
[2016-06-19] MEDS: *HR* Heparin 5,000 UNIT/ML VIAL SQ SCH ×2 (05:17→18:37)
[2016-06-19 05:31] LABS: BUN/Creatinine Ratio 13 (6-26); Blood Urea Nitrogen 8 mg/dL (7-20); Calcium 8.2 mg/dL (8.6-10.8); Carbon Dioxide 25 mEq/L (19-29); Chloride 107 mEq/L (98-109); Glucose 84 mg/dL (70-99); Osmolality,Calculated 288 (280-300); Potassium 3.2 mEq/L (3.5-4.5); Sodium 140 mEq/L (136-145); eGFR For African Americans > 60 (> 60); eGFR For Non-African Americans > 60 (> 60)
[2016-06-19] MEDS: Piperacillin/Tazobactam 3.375 GM in D5% in Water (Mini-Bag+) 100 ML IVPB SCH ×3 (08:01→23:58)
--- NOTE | 2016-06-19 09:46 | General Surgery Progress Note ---
Date of Encounter: 06/19/16 Time of Encounter: 09:43 - Assessment and Plan (1) Acute acalculous cholecystitis Current Visit: Yes Status: Acute MORELIA drain in the right upper quadrant still has high drainage with 450mL out yesterday and 170mL out today so far, serosanguineous with bile tinge. Drainage remains high. Plan: Continue the antibiotics Continue Seven-Jo drainage to resolution. Anticipate patient being discharge with drain in place. Patient will require follow up with Alcira England NP for drain removal. (2) Postoperative bile leak Current Visit: Yes Status: Acute High volume bile tinged drainage continues from MORELIA drain Plan per above. Subjective Patient reports: no new complaints, feels better, flatus Narrative: The patient is postoperative day #3 from laparoscopic cholecystectomy. The drain in the right upper quadrant still has high drainage with 450mL out yesterday and 170mL out today so far. This is serosanguineous with bile tinge. Plan to continue the antibiotics and Seven-Jo drainage. We will watch for the drainage to fall off, but anticipate patient being discharge with drain in place. Patient denies having a bowel movement, but does report passing gas. Objective Vital Signs - Last 8 Hours Temp Pulse Resp BP Pulse Ox 06/19/16 07:38 97.8 F 67 14 130/79 96 06/19/16 03:31 98.4 F 71 14 110/59 97 Intake and Output 06/18/16 06/19/16 06/19/16 23:59 07:59 15:59 Intake Total 1440 / 1440 200 / 200 480 / 480 Output Total 410 / 410 370 / 370 Balance 1030 / 1030 -170 / -170 480 / 480 Intake: IV Fluids 1100 / 1100 100 / 100 0.9 % Sodium Chloride 1, 1000 / 1000 000 ML @ 75 mls/hr IVC . [id number] [facility] Rx#: [id number] Zosyn 3.375 GM In 100 / 100 100 / 100 Dextrose 5% (Minibag+) 100 ML 100 ML @ 25 mls/hr IVPB Q8HR [facility] Rx#: [id number] Oral 340 / 340 100 / 100 480 / 480 Output: Urine 300 / 300 200 / 200 Wound Drainage 110 / 110 170 / 170 Right Lower Abdomen 110 / 110 170 / 170 Other: Weight 85.185 kg Patient Weight 06/19/16 23:59 Weight 85.185 kg - General physical appearance well nourished, no distress, no pain - Respiratory normal expansion, normal respiratory effort, clear to percussion, clear to auscultation - Cardiovascular Cardiovascular exam: Present: RRR, no murmurs/rubs/gallops - Abdomen Abdomen: Present: bowel sounds present, non tender Additional Comments: drain in place, serosanguinous bile tinged fluid - Incision Incision: Present: clean and dry - Psychiatric oriented to time, oriented to person, oriented to place, speech is normal, memory intact - Labs 06/20/16 03:54 06/20/16 03:54 Diabetes panel 06/18/16 06/19/16 Range/Units 12:39 03:58 Sodium 139 140 (136-145) mEq/L Potassium 3.4 L 3.2 L (3.5-4.5) mEq/L Chloride 107 107 (98-109) mEq/L Carbon Dioxide 26 25 (19-29) mEq/L BUN 9 8 (7-20) mg/dL Creatinine 0.63 0.63 (0.57-1.11) mg/dL Glucose 98 84 (70-99) mg/dL Calcium 8.5 L 8.2 L (8.6-10.8) mg/dL Calcium panel 06/18/16 06/19/16 Range/Units 12:39 03:58 Calcium 8.5 L 8.2 L (8.6-10.8) mg/dL Pituitary panel 06/18/16 06/19/16 Range/Units 12:39 03:58 Sodium 139 140 (136-145) mEq/L Potassium 3.4 L 3.2 L (3.5-4.5) mEq/L Chloride 107 107 (98-109) mEq/L Carbon Dioxide 26 25 (19-29) mEq/L BUN 9 8 (7-20) mg/dL Creatinine 0.63 0.63 (0.57-1.11) mg/dL Glucose 98 84 (70-99) mg/dL Calcium 8.5 L 8.2 L (8.6-10.8) mg/dL Adrenal panel 06/18/16 06/19/16 Range/Units 12:39 03:58 Sodium 139 140 (136-145) mEq/L Potassium 3.4 L 3.2 L (3.5-4.5) mEq/L Chloride 107 107 (98-109) mEq/L Carbon Dioxide 26 25 (19-29) mEq/L BUN 9 8 (7-20) mg/dL Creatinine 0.63 0.63 (0.57-1.11) mg/dL Glucose 98 84 (70-99) mg/dL Calcium 8.5 L 8.2 L (8.6-10.8) mg/dL - VTE Documentation of Mechanical Device: Venous foot pump, device Consult Discharge Plan - Plan Referrals: Jose Zaman MD [Primary Care Provider] - Alcira England CNP [Advanced Practice Nurse] - - Attending Attestation I examined this patient and my medical decision-making was reviewed with the TILE CLASSIFIER/PA/Advanced Practice Nurse/Resident Physician. I agree with the documented findings, disposition and treatment plan as described except to the extent set forth below. The patient is seen and evaluated with the resident on morning rounds she has a high-volume bile leak. Consider ERCP Brian Rae MD FACS
--- NOTE | 2016-06-19 13:54 | Anesthesia Evaluation PreOp ---
Date of Encounter: 06/19/16 Time of Encounter: 13:52 - Past History Planned Operation: ercp Cardiac History: HTN, Hyperlipidemia, Other (echo: nl rv, ef 60) Anesthesia History: No Prior Anesthetic Complications, Past Anesthesia (spine, lap kvng) Alcohol Use: none Drug use: none Medications and Allergies Atorvastatin [Lipitor] 10 mg PO HS 06/01/15 [History] Cholecalciferol (Vitamin D3) [Vitamin D] 1,000 unit PO DAILY 06/01/15 [History] Lisinopril-HCTZ 10-12.5 [Prinzide 10-12.5] 1 each PO DAILY 06/01/15 [History] Omeprazole [PriLOSEC] 20 mg PO BIDAC 06/01/15 [History] Ropinirole [Requip] 3 mg PO BID 06/01/15 [History] Sertraline [Zoloft] 25 mg PO BID 02/14/16 [History] Aspirin 81 mg PO DAILY 06/14/16 [History] HYDROcodone/Acet 5/325 mg [[place] 5-325 mg] 1 tab PO Q8H PRN 06/14/16 [History] Hyoscyamine SL [Levsin SL] 0.125 mg SL TID 06/14/16 [History] Lansoprazole [Prevacid] 15 mg PO DAILY 06/14/16 [History] Ondansetron ODT [Zofran ODT] 4 mg SL Q8H PRN 06/14/16 [History] Sucralfate [Carafate] 1 gm PO BID 06/14/16 [History] Vitamin B Complex [B Complex] 1 each PO DAILY 06/14/16 [History] Allergies gabapentin Allergy (Verified 06/14/16 19:11) Rash terfenadine [From Seldane] Allergy (Verified 06/14/16 19:11) Rash tuberculin,PPD,multi-puncture Allergy (Verified 06/14/16 19:11) Rash Anesthesia Results - Labs 06/19/16 03:58 06/19/16 03:58 - Imaging EKG: report reviewed (sr) Anesthesia Exam Vital Signs/O2 Sat/Glucose, Most Current Temp Pulse Resp BP Pulse Ox 06/19/16 10:50 97.6 F 72 16 105/58 96 Height: 1.57 Weight: 85 NPO (# of Hours): >8 - HEENT Pupil (Motor): Pupils equal, EOMI Mallampati: II Teeth: Edentulous, Poor dentition Oral Opening: Greater than 3 - ROLL PLUGGER MACHINE OPERATOR LOC: Oriented ROLL PLUGGER MACHINE OPERATOR Motor: Normal RUE, Normal LUE, Normal RLE, Normal LLE, Normal Face ROLL PLUGGER MACHINE OPERATOR Sensory: Normal: RUE, LUE, RLE, LLE, Face - Cardiac Rhythm: Regular Murmur: None - Pulmonary Breath Sounds: bilateral Clear Respiratory Effort: Symmetrical Anesthesia Assess/Plan ASA Score: 3 Modified Penelope Scale for Level of Consciousness: Cooperative, oriented, and tranquil Anesthetic Plan: General Monitoring Plan: Standard Monitors Recovery Plan: PACU
[2016-06-19] MEDS ORDERED: *HR* Succinylcholine 200 MG/10 ML VIAL IVP ONE (15:42)
[2016-06-19] MEDS ORDERED: Ondansetron 4 MG/2 ML VIAL IVP ONE (15:42)
[2016-06-19] MEDS ORDERED: *HR* Propofol 500 MG/50 ML BOTTLE IVC ONE (15:42)
[2016-06-19] MEDS: 0.9 % Sodium Chloride 1,000 ML IVC SCH (16:05)
--- NOTE | 2016-06-19 18:35 | Internal Med Progress Note ---
Date of Encounter: 06/19/16 Time of Encounter: 11:00 - Assessment and plan (1) Acalculous cholecystitis Current Visit: Yes Status: Acute Assessment and plan: POD#3 laparoscopic cholecystectomy, recovering slowly. Still having abundant drain from the MORELIA. We will continue with with IV fluids. Clear liquid diet Appreciate general surgery input. Continue with IV meropenem for cholecystitis. There is an apparent biliary leak. I have discussed the case with general surgery recommends ERCP for CBD stent placement to attempt and relief of pressure and decrease the amount of biliary leak. Patient to undergo this procedure today. She is at high risk for morbidity mortality and complications due to need for IV opiates for pain control. (2) GERD (gastroesophageal reflux disease) Current Visit: Yes Status: Chronic Assessment and plan: IV Protonix. Qualifiers: Esophagitis presence: esophagitis presence not specified Qualified Code(s) : K21.9 - Gastro-esophageal reflux disease without esophagitis (3) DVT prophylaxis Current Visit: Yes Status: Acute Assessment and plan: Sq heparin (4) Essential hypertension Current Visit: Yes Status: Acute Assessment and plan: Blood pressure is within normal limits off antihypertensives. We will hold lisinopril and HCTZ for now. - Subjective Interval history: 06/19/2016: Patient is status post laparoscopic cholecystectomy POD#3. Reports 7/10 right upper quadrant pain. Associated with mild nausea. No vomiting. Denies passing any gas. No bowel movement. - Constitutional Vitals: Temp Pulse Resp BP Pulse Ox 98.2 F 74 18 125/63 97 06/19/16 14:18 06/19/16 14:18 06/19/16 14:18 06/19/16 14:18 06/19/16 14:18 General appearance: Present: cooperative, A&O X 3, no acute distress, answers questions appropriately - Respiratory Respiratory exam: Present: CTAB. Absent: accessory muscle use, rales, rhonchi, wheezes - Cardiovascular Cardiovascular exam: Present: RRR, +S1, +S2. Absent: diastolic murmur, gallop, rubs, systolic murmur - GI/Abdominal GI/Abdominal exam: Present: diminished bowel sounds, distended, soft, tenderness (MORELIA drain in the right upper quadrant draining dark red bilious fluid ), no peritoneal signs. Absent: guarding - Extremities Exam Extremities exam: Present: warm, radial pulses palpable and symetrical. Absent : calf tenderness, cyanotic, pedal edema - Skin Skin exam: Present: dry, intact Internal Medicine: Result - Labs CBC & Chem 7: 06/19/16 03:58 06/19/16 03:58 Labs: Short CBC 06/19/16 Range/Units 03:58 WBC 5.5 (4.3-11.1) K/mcL Hgb 9.9 L (11.5-15.4) g/dL Hct 30.7 L (35.3-44.9) % Plt Count 165 (140-400) K/mcL Neutrophils # 3.9 (1.6-8.9) K/mcL BMP 06/19/16 03:58 Sodium 140 Potassium 3.2 L Chloride 107 Carbon Dioxide 25 BUN 8 Creatinine 0.63 Glucose 84 Calcium 8.2 L - ABG Interpretation ABG results: PT/INR, D-dimer PT 14.1 Seconds (9.4-12.1) H 06/14/16 17:52 - VTE Documentation of Mechanical Device: Venous foot pump, device Consult Discharge Plan - Plan Referrals: Alcira England CNP [Advanced Practice Nurse] - Jose Zaman MD [Primary Care Provider] -
[2016-06-20] MEDS: *HR* Morphine 2 MG/ML SYRINGE IVP PRN ×2 (00:05→06:35)
[2016-06-20 04:26] LABS: Basophils % 0.2 %; Eosinophils # 0.1 K/mcL (0.0-0.6); Eosinophils % 1.3 %; Hematocrit 31.6 % (35.3-44.9); Immature Granulocytes % 0.7 % (0-4); Lymphocytes # 0.8 K/mcL (0.6-4.6); Lymphocytes % 14.5 %; Mean Corpuscular HGB Conc 31.6 g/dL (31.6-35.5); Mean Corpuscular Hemoglobin 27.6 pg (28.0-33.3); Mean Corpuscular Volume 87.3 fL (83.0-100.0); Mean Platelet Volume 10.1 fL (9.4-12.4); Monocytes # 0.6 K/mcL (0.0-1.3); Monocytes % 11.4 %; Neutrophils # 3.9 K/mcL (1.6-8.9); Platelet Count 202 K/mcL (140-400); Red Blood Count 3.62 M/mcL (3.82-4.97); Red Cell Distribution Width 14.3 % (11.5-14.5); Segmented Neutrophils % 71.9 %
[2016-06-20 04:42] LABS: BUN/Creatinine Ratio 10 (6-26); Blood Urea Nitrogen 6 mg/dL (7-20); Calcium 8.2 mg/dL (8.6-10.8); Carbon Dioxide 25 mEq/L (19-29); Chloride 107 mEq/L (98-109); Glucose 93 mg/dL (70-99); Osmolality,Calculated 287 (280-300); Potassium 3.2 mEq/L (3.5-4.5); Sodium 140 mEq/L (136-145); eGFR For African Americans > 60 (> 60); eGFR For Non-African Americans > 60 (> 60)
[2016-06-20] MEDS: *HR* Heparin 5,000 UNIT/ML VIAL SQ SCH ×2 (06:35→17:59)
[2016-06-20] MEDS: 0.9 % Sodium Chloride 1,000 ML IVC SCH ×2 (06:35→21:22)
[2016-06-20] MEDS: Piperacillin/Tazobactam 3.375 GM in D5% in Water (Mini-Bag+) 100 ML IVPB SCH ×2 (07:50→15:53)
[2016-06-20] MEDS: *HR* OxyCODONE/APAP 10/325 TABLET PO PRN (07:56)
--- NOTE | 2016-06-20 08:23 | Gastroenterology Consult Note ---
<Gris Blue - Last Filed: 06/20/16 11:03> Date of Encounter: 06/20/16 Time of Encounter: 10:25 - Assessment and plan (1) Postoperative bile leak Current Visit: Yes Status: Acute Assessment and plan: ERCP today. Normal LFTs. - Time Spent With Patient Total time spent is greater than 50% in coordination of care (as documented) at patient's floor/unit and/or counseling patient: less than 15 minutes GI History of Present Illness - Data of Consult Patient: new to practice Consult date: 06/20/16 Requesting Physician: Adonay Arteaga - Consult Narrative Reason for consult: bile leak History of present illness: Ms. Mcclendon is a 81 year old female with PMH of HTN, hyperlipidemia, GERD, venous insufficiency, restless leg syndrome, depression and history of kidney stones. Patient presented to [facility] with complaint of RUQ abdominal pain radiating to RLQ on 5/3. Acute onset of pain starting 5/1 pm. Patient was not sure if modified by eating since she has not eaten due to poor appetite. It's associated with nausea and vomiting with yellow liquid vomitus. Patient was in [place] at that time and had an ED visit there. Per patient, she got CT A/P and gallbladder US there and was told the gallbladder looks infected but surgery is not indicated so she was discharge with PPI, sucralfate and hyoscyamine. Patient's abdominal pain, nausea and vomiting persist so eventually patient came to [facility] ED right after coming back to [place]. Patient denies fever, chills, diarrhea, hematochezia, melena, hematuria, dysuria, chest pain, shortness of breath, diaphoresis, palpitation, syncope, significant weight change. In ED, patient was noted to have leukocytosis at 17.2 and slightly elevated troponin at 0.05. CT A/P suggests acalculous cholecystitis and that's further confirmed by gallbladder US. Patient underwent lap kvng with Dr. Perry 06/16/16. On POD #3, it was noted patient MORELIA drain was still producing large volume of bile, patient was having RUQ/RLQ abd pain post-kvng. Dx was bile leak. Patient resting comfortably in bed. Continued complaint of RUQ /mid abd pain. Colonoscopy: 6-7 years - no polyps per patient EGD: None noted Past Med Surg Social Fam HX - Past Medical History Medical history: GERD, hyperlipidemia, hypertension Psychiatric history: anxiety, depression - Past Surgical History Surgical History: orthopedic, other (Right knee surgery, lower back surgery), other (tubal ligation, colonoscopy greater than 10 years ago) - Social History Smoking Status: Never smoker Smokeless Tobacco Status: No Alcohol use: none Drug use: none - Family History Daughter Living Status: Hx Family Endocrine Disorder: Yes (DM) - Gastrointestinal NSAID use: None noted Anticoagulation Use: heparin Number of BM Per Day: daily Gastrointestinal: Present: abdominal pain, nausea, vomiting - Constitutional Constitutional: as per HPI - EENT Eyes: as per HPI Ears: Present: as per HPI Nose, mouth and throat: Present: as per HPI - Cardiovascular Cardiovascular ROS: Present: as per HPI - Respiratory Respiratory IM: Present: as per HPI - Neurological ROS Neurological GI: Present: as per HPI - Hematologic/Lymphatic Hematologic/Lymphatic pediatric: Present: as per HPI - Musculoskeletal Musculoskeletal ROS GI: Present: as per HPI - Integumentary Integumentary GI: Present: as per HPI - Psychiatric ROS Psychiatric GI: Present: as per HPI - Endocrine Endocrine IM: Present: as per HPI - Constitutional Vitals: Temp Pulse Resp BP Pulse Ox 99.3 F 84 14 139/73 92 06/20/16 05:24 06/20/16 05:24 06/20/16 05:24 06/20/16 05:24 06/20/16 05:24 General appearance: Present: cooperative, A&O X 3, no acute distress, answers questions appropriately - Head Head exam: Present: atraumatic, normocephalic - Eye Eye exam: Present: normal appearance, sclera anicteric - ENT ENT exam: Present: mucous membranes moist - Neck Neck exam general surgery: Present: normal inspection, trachea midline - Respiratory Respiratory exam: Present: CTAB - Cardiovascular Cardiovascular exam: Present: RRR, +S1, +S2 - GI/Abdominal GI/Abdominal exam: Present: soft, tenderness Additional comments: lap scars on abd. MORELIA in place. - Rectal Rectal exam: Present: deferred - Extremities Exam Extremities exam: Present: warm - Neurological Exam Neurological exam: Present: no focal deficits - Psychiatric Psychiatric exam: Present: normal affect, normal mood - Skin Skin exam: Present: dry, intact, normal color, warm Results - Labs CBC & Chem 7: 06/20/16 03:54 06/20/16 03:54 Labs: Last Result Calcium 8.2 mg/dL (8.6-10.8) L 06/20/16 03:54 Troponin I 0.03 ng/mL (0-0.03) 06/15/16 06:37 Entire Visit Hgb 10.0 g/dL (11.5-15.4) L 06/20/16 03:54 Hct 31.6 % (35.3-44.9) L 06/20/16 03:54 PT 14.1 Seconds (9.4-12.1) H 06/14/16 17:52 Total Bilirubin 0.8 mg/dL (0.2-1.2) 06/15/16 00:08 AST 35 Units/L (5-34) H 06/15/16 00:08 ALT 22 Units/L (0-55) 06/15/16 00:08 Amylase 29 Units/L (25-125) 06/14/16 17:52 Lipase < 4 Units/L (8-78) L 06/14/16 17:52 - ABG ABG results: PT/INR, D-dimer PT 14.1 Seconds (9.4-12.1) H 06/14/16 17:52 Consult Discharge Plan - Plan Referrals: Alcira England CNP [Advanced Practice Nurse] - Jose Zaman MD [Primary Care Provider] - <DavidDick - Last Filed: 06/20/16 17:31> Date of Encounter: 06/20/16 Time of Encounter: 13:00 - Time Spent With Patient Total time spent is greater than 50% in coordination of care (as documented) at patient's floor/unit and/or counseling patient: GI History of Present Illness - Data of Consult Requesting Physician: Adonay Arteaga - Consult Narrative History of present illness: Ms. Mcclendon is a 81 year old female - Constitutional Vitals: Temp Pulse Resp BP Pulse Ox 98.2 F 69 16 125/76 69 06/20/16 16:32 06/20/16 16:32 06/20/16 16:32 06/20/16 16:32 06/20/16 16:32 Results - Labs CBC & Chem 7: 06/20/16 03:54 06/20/16 03:54 Labs: Last Result Calcium 8.2 mg/dL (8.6-10.8) L 06/20/16 03:54 Troponin I 0.03 ng/mL (0-0.03) 06/15/16 06:37 Entire Visit Hgb 10.0 g/dL (11.5-15.4) L 06/20/16 03:54 Hct 31.6 % (35.3-44.9) L 06/20/16 03:54 PT 14.1 Seconds (9.4-12.1) H 06/14/16 17:52 Total Bilirubin 0.5 mg/dL (0.2-1.2) 06/20/16 03:54 AST 19 Units/L (5-34) 06/20/16 03:54 ALT 17 Units/L (0-55) 06/20/16 03:54 Amylase 29 Units/L (25-125) 06/14/16 17:52 Lipase < 4 Units/L (8-78) L 06/14/16 17:52 - ABG ABG results: PT/INR, D-dimer PT 14.1 Seconds (9.4-12.1) H 06/14/16 17:52 - Impressions Impressions Cath/Invasive Procedure 06/20/16 14:17 IMPRESSION: Successful fluoroscopic imaging during endoscopy. D/ / 06/20/2016 16:11:21 Luz Elena Gamez MD / [place] Interpreting Provider: Luz Elena Gamez MD - Attending Attestation I examined this patient and my medical decision-making was reviewed with the CROSS TIE TURNER/PA/Advanced Practice Nurse/Resident Physician. I agree with the documented findings, disposition and treatment plan as described except to the extent set forth below.
--- NOTE | 2016-06-20 08:49 | General Surgery Progress Note ---
Date of Encounter: 06/20/16 Time of Encounter: 08:47 - Assessment and Plan (1) Acute acalculous cholecystitis Current Visit: Yes Status: Acute MORELIA drain in the right upper quadrant still has high drainage with 420mL out yesterday, serosanguineous with bile tinge. GI to do ERCP today for CBD stent placement to attempt and relief of pressure and decrease the amount of biliary leak. Plan: ERCP today with GI Continue the antibiotics Continue Seven-Jo drainage to resolution. Anticipate patient being discharge with drain in place. Patient will require follow up with Alcira England NP for drain removal. (2) Postoperative bile leak Current Visit: Yes Status: Acute High volume bile tinged drainage continues from MORELIA drain Plan per above. Subjective Patient reports: still having pain Narrative: Patient seen and examined. She states that her abdominal pain is similar to what it was before the surgery. She is passing gas but has not had a BM. She has had 420cc of bile-tinged dark brown fluid in MORELIA drain yesterday. Awaiting plan for ERCP per GI. Objective Vital Signs - Last 8 Hours Temp Pulse Resp BP Pulse Ox 06/20/16 08:27 98.7 F 75 16 112/67 95 06/20/16 05:24 99.3 F 84 14 139/73 92 Intake and Output 06/19/16 06/20/16 06/20/16 23:59 07:59 15:59 Intake Total 1220 / 1220 1100 / 1100 Output Total 690 / 690 500 / 500 Balance 530 / 530 600 / 600 Intake: IV Fluids 1100 / 1100 1100 / 1100 0.9 % Sodium Chloride 1, 1000 / 1000 1000 / 1000 000 ML @ 75 mls/hr IVC . [id number] [facility] Rx#: [id number] Zosyn 3.375 GM In 100 / 100 100 / 100 Dextrose 5% (Minibag+) 100 ML 100 ML @ 25 mls/hr IVPB Q8HR [facility] Rx#: [id number] Oral 120 / 120 0 / 0 Output: Urine 500 / 500 300 / 300 Wound Drainage 190 / 190 200 / 200 Right Lower Abdomen 190 / 190 200 / 200 Other: Meal Dinner Weight 85.185 kg Blood Glucose* 96 Patient Weight 06/20/16 23:59 Weight 85.185 kg - General physical appearance well developed, well nourished, no distress - Respiratory normal expansion, normal respiratory effort, clear to percussion, clear to auscultation - Cardiovascular Cardiovascular exam: Present: RRR, no murmurs/rubs/gallops - Abdomen Abdomen: Present: bowel sounds present, soft, tender. Absent: distended Abdominal Tenderness: epigastic, RUQ Additional Comments: drain in place, serosanguinous bile tinged fluid - Incision Incision: Present: clean and dry - Psychiatric oriented to time, oriented to person, oriented to place, speech is normal, memory intact - Labs 06/20/16 03:54 06/20/16 03:54 Diabetes panel 06/20/16 Range/Units 03:54 Sodium 140 (136-145) mEq/L Potassium 3.2 L (3.5-4.5) mEq/L Chloride 107 (98-109) mEq/L Carbon Dioxide 25 (19-29) mEq/L BUN 6 L (7-20) mg/dL Creatinine 0.61 (0.57-1.11) mg/dL Glucose 93 (70-99) mg/dL Calcium 8.2 L (8.6-10.8) mg/dL Calcium panel 06/20/16 Range/Units 03:54 Calcium 8.2 L (8.6-10.8) mg/dL Pituitary panel 06/20/16 Range/Units 03:54 Sodium 140 (136-145) mEq/L Potassium 3.2 L (3.5-4.5) mEq/L Chloride 107 (98-109) mEq/L Carbon Dioxide 25 (19-29) mEq/L BUN 6 L (7-20) mg/dL Creatinine 0.61 (0.57-1.11) mg/dL Glucose 93 (70-99) mg/dL Calcium 8.2 L (8.6-10.8) mg/dL Adrenal panel 06/20/16 Range/Units 03:54 Sodium 140 (136-145) mEq/L Potassium 3.2 L (3.5-4.5) mEq/L Chloride 107 (98-109) mEq/L Carbon Dioxide 25 (19-29) mEq/L BUN 6 L (7-20) mg/dL Creatinine 0.61 (0.57-1.11) mg/dL Glucose 93 (70-99) mg/dL Calcium 8.2 L (8.6-10.8) mg/dL - VTE Documentation of Mechanical Device: Venous foot pump, device Consult Discharge Plan - Plan Referrals: Alcira England CNP [Advanced Practice Nurse] - Jose Zaman MD [Primary Care Provider] - - Attending Attestation I examined this patient and my medical decision-making was reviewed with the [employer] INSTRUMENT REPAIRER/PA/Advanced Practice Nurse/Resident Physician. I agree with the documented findings, disposition and treatment plan as described except to the extent set forth below. The patient is seen and evaluated on morning rounds. We will plan ERCP to drop the physiologic pressure in the biliary system to assist with closing of the bile leak. We will plan ERCP for later today.
[2016-06-20 09:11] LABS: Alanine Aminotransferase 17 Units/L (0-55); Albumin 2.3 g/dL (3.5-5.0); Albumin/Globulin Ratio 0.7 (1.1-2.2); Alkaline Phosphatase 86 Units/L (38-126); Aspartate Amino Transferase 19 Units/L (5-34); Bilirubin,Direct 0.3 mg/dL (0.0-0.5); Bilirubin,Indirect 0.2 mg/dL (0.0-1.2); Bilirubin,Total 0.5 mg/dL (0.2-1.2); Globulin 3.2 g/dL (2.4-3.5); Total Protein 5.5 g/dL (6.0-8.3)
--- NOTE | 2016-06-20 11:54 | Internal Med Progress Note ---
Date of Encounter: 06/20/16 Time of Encounter: 11:51 - Assessment and plan (1) Acalculous cholecystitis Current Visit: Yes Status: Acute Assessment and plan: POD#4 laparoscopic cholecystectomy, recovering slowly. Still having abundant drain from the MORELIA. We will continue with with IV fluids. Appreciate general surgery input. Continue with IV Zosyn D4 for cholecystitis. Biliary leakobserved , ERCP for CBD stent placement today She is at high risk for morbidity mortality and complications due to need for IV opiates for pain control. (2) Hyperlipidemia Current Visit: Yes Status: Chronic Qualifiers: Hyperlipidemia type: unspecified Qualified Code(s): E78.5 - Hyperlipidemia , unspecified (3) GERD (gastroesophageal reflux disease) Current Visit: Yes Status: Chronic Assessment and plan: omeprazole Qualifiers: Esophagitis presence: esophagitis presence not specified Qualified Code(s) : K21.9 - Gastro-esophageal reflux disease without esophagitis (4) Essential hypertension Current Visit: Yes Status: Acute Assessment and plan: Blood pressure is within normal limits off antihypertensives. We will hold lisinopril and HCTZ for now. (5) Postoperative bile leak Current Visit: Yes Status: Acute (6) Hypokalemia Current Visit: Yes Status: Acute Assessment and plan: replete after ERCP 40 meq KCl - Time Spent With Patient Greater than 35 minutes - Subjective Interval history: mild abdominal discomfort, denies CP or SOB, no fever, no nausea, no diarrhea, no dysuria - Constitutional Vitals: Temp Pulse Resp BP Pulse Ox 98.4 F 67 16 116/69 96 06/20/16 11:19 06/20/16 11:19 06/20/16 11:19 06/20/16 11:19 06/20/16 11:19 General appearance: Present: cooperative, A&O X 3, no acute distress, answers questions appropriately - Head Head exam: Present: atraumatic, normocephalic - Eye Eye exam: Present: PERRL, conjuntiva pink, sclera anicteric Pupils: Present: PERRL - Neck Neck exam general surgery: Present: supple, trachea midline. Absent: lymphadenopathy - Respiratory Respiratory exam: Present: CTAB. Absent: accessory muscle use, rales, rhonchi, wheezes - Cardiovascular Cardiovascular exam: Present: RRR, +S1, +S2. Absent: diastolic murmur, gallop, rubs, systolic murmur - GI/Abdominal GI/Abdominal exam: Present: distended (MORELIA drain with bile color fluid), normal bowel sounds, soft, no peritoneal signs. Absent: tenderness - Extremities Exam Extremities exam: Present: warm, radial pulses palpable and symetrical. Absent : calf tenderness, cyanotic, pedal edema - Neurological Exam Neurological exam: Present: CN II-XII intact, oriented X3, no focal deficits. Absent: pronater drift, facial droop, speech deficit - Skin Skin exam: Present: dry, intact Internal Medicine: Result - Labs CBC & Chem 7: 06/20/16 03:54 06/20/16 03:54 Labs: Short CBC 06/20/16 Range/Units 03:54 WBC 5.4 (4.3-11.1) K/mcL Hgb 10.0 L (11.5-15.4) g/dL Hct 31.6 L (35.3-44.9) % Plt Count 202 (140-400) K/mcL Neutrophils # 3.9 (1.6-8.9) K/mcL BMP 06/20/16 03:54 Sodium 140 Potassium 3.2 L Chloride 107 Carbon Dioxide 25 BUN 6 L Creatinine 0.61 Glucose 93 Calcium 8.2 L Liver Function 06/20/16 Range/Units 03:54 Total Bilirubin 0.5 (0.2-1.2) mg/dL Direct Bilirubin 0.3 (0.0-0.5) mg/dL AST 19 (5-34) Units/L ALT 17 (0-55) Units/L Alkaline Phosphatase 86 (38-126) Units/L Albumin 2.3 L (3.5-5.0) g/dL - ABG Interpretation ABG results: PT/INR, D-dimer PT 14.1 Seconds (9.4-12.1) H 06/14/16 17:52 - VTE Documentation of Mechanical Device: Venous foot pump, device Consult Discharge Plan - Plan Referrals: Alcira England CNP [Advanced Practice Nurse] - Jose Zaman MD [Primary Care Provider] -
[2016-06-20] MEDS ORDERED: *HR* FentaNYL (PF) 100 MCG/2 ML VIAL ONE (14:00)
[2016-06-20] MEDS ORDERED: Indomethacin 50 MG SUPP.RECT RC ONE (15:15)
--- NOTE | 2016-06-20 15:37 | Anesthesia Evaluation Post Op ---
Date of Encounter: 06/20/16 Time of Encounter: 15:35 - Vital Signs Vital Signs: vss - Lungs Lungs: Clear Ascult./Percussion - Airway Airway: Non-obstructed - Cardiovascular Regular Rate, Baseline Rhythm - Mental Status Mental Status: Alert & Oriented, Answers Appropriately - Pain Pain Scale: 0 Pain Scale used: Numeric (1 - 10) - Nausea Vomiting Nausea Vomiting: Not Present - Hydration Hydration: Tolerates oral liquids, Ice chips - Discharge PostOp Status: Transfer Patient to floor
[2016-06-21] MEDS: Piperacillin/Tazobactam 3.375 GM in D5% in Water (Mini-Bag+) 100 ML IVPB SCH ×3 (00:26→10:33)
[2016-06-21] MEDS: *HR* Heparin 5,000 UNIT/ML VIAL SQ SCH (06:54)
--- NOTE | 2016-06-21 08:37 | General Surgery Progress Note ---
Date of Encounter: 06/21/16 Time of Encounter: 08:29 - Assessment and Plan (1) Acute acalculous cholecystitis Current Visit: Yes Status: Acute POD #[address] Perry. Patient had ERCP with Dr. Hernandez 06/20. Patient tolerating regular diet, has been passing gas, had not had a BM. MORELIA drain in the right upper quadrant had 400mL out 06/20 and 50mL so far today, serosanguineous drainage. GI performed ERCP 06/20 for CBD stent placement to attempt and relief of pressure and decrease the amount of biliary leak. During the ERCP a bile leak was found, the biliary tree was swept and sludge was found. A 8.5 Fr by 9cm temporary stent with a single external flap and single internal flap was placed 8cm into the common bile duct, bile was visualized flowing through the stent. GI reccomends a repeat ERCP in 2 weeks to remove the stent. Plan: Patient is ok to discharge today, will need f/u. Continue the antibiotics Continue Seven-Jo drainage to resolution. Anticipate patient being discharge with drain in place. Patient will require follow up with Alcira England NP for drain removal. (2) Postoperative bile leak Current Visit: Yes Status: Acute Patient had ERCP 06/20. Bile leak found and stent placed in common bile duct, recommend repeat ERCP to remove stent in 2 weeks. Plan per above. Subjective Patient reports: no new complaints, feels better, still having pain, pain is less, tolerating a regular diet, flatus, no bowel movement Narrative: Patient seen and examined. She states she has some pain in her abdomen this morning, but is feeling better than yesterday. She has been passing gas, but has been unable to have a BM. She is tolerating a regular diet. She denies nausea. Objective Vital Signs - Last 8 Hours Temp Pulse Resp BP Pulse Ox 06/21/16 06:41 98.7 F 78 18 130/78 93 06/21/16 03:20 98.2 F 68 18 126/70 92 Intake and Output 06/20/16 06/21/16 06/21/16 23:59 07:59 15:59 Intake Total 1340 / 1340 400 / 400 Output Total 920 / 920 50 / 50 Balance 420 / 420 350 / 350 Intake: IV Fluids 1100 / 1100 100 / 100 0.9 % Sodium Chloride 1, 1000 / 1000 000 ML @ 75 mls/hr IVC . [id number] [facility] Rx#: [id number] Zosyn 3.375 GM In 100 / 100 100 / 100 Dextrose 5% (Minibag+) 100 ML 100 ML @ 25 mls/hr IVPB Q8HR [facility] Rx#: [id number] Oral 240 / 240 300 / 300 Output: Urine 800 / 800 0 / 0 Wound Drainage 120 / 120 50 / 50 Right Lower Abdomen 120 / 120 50 / 50 Other: Meal Dinner Percent of Meal Consumed 100% Stool Size Smear Stool Consistency formed Stool Color Brown Weight 86.13 kg Patient Weight 06/21/16 23:59 Weight 86.13 kg - General physical appearance well developed, well nourished, no distress, no pain - ENT normal mucosa, atraumatic, normocephalic - Neck Neck exam: no masses, trachea midline - Respiratory normal expansion, normal respiratory effort, clear to percussion, clear to auscultation - Cardiovascular Cardiovascular exam: Present: RRR, no murmurs/rubs/gallops Addtional Comments: MORELIA drain in place in RUQ with serosanguinous drainage. - Abdomen Abdomen: Present: bowel sounds present, soft, non tender - Incision Incision: Present: clean and dry - Integumentary no rash, no abnormal pigmentation - Psychiatric oriented to time, oriented to person, oriented to place, speech is normal, memory intact - Labs 06/20/16 03:54 06/20/16 03:54 Diabetes panel 06/20/16 Range/Units 03:54 AST 19 (5-34) Units/L ALT 17 (0-55) Units/L Alkaline Phosphatase 86 (38-126) Units/L Albumin 2.3 L (3.5-5.0) g/dL Calcium panel 06/20/16 Range/Units 03:54 Albumin 2.3 L (3.5-5.0) g/dL Adrenal panel 06/20/16 Range/Units 03:54 Total Bilirubin 0.5 (0.2-1.2) mg/dL AST 19 (5-34) Units/L ALT 17 (0-55) Units/L Alkaline Phosphatase 86 (38-126) Units/L Albumin 2.3 L (3.5-5.0) g/dL - VTE Documentation of Mechanical Device: Venous foot pump, device Consult Discharge Plan - Plan Additional Instructions: Follow with primary care physician within 7 days. Follow with the surgery service to remove MORELIA drain. Complete 5 more doses of Augmentin . Referrals: Alcira England CNP [Advanced Practice Nurse] - Jose Zaman MD [Primary Care Provider] - Prescriptions: Amoxicillin/Clavulanate [Augmentin] 875 mg PO BIDWM #5 tablet HYDROcodone/Acet 5/325 mg [[place] 5-325 mg] 1 tab PO Q8H PRN #20 tablet PRN Reason: Pain
--- NOTE | 2016-06-21 09:30 | Discharge Summary ---
Date of Encounter: 06/21/16 Time of Encounter: 09:28 - Discharge Diagnosis (1) Acalculous cholecystitis Priority: Primary Status: Acute Comments: POD#5 laparoscopic cholecystectomy, developed a biliary leak, improved after ERCP with common bile duct stent placed (2) Hyperlipidemia Priority: Secondary Status: Chronic Qualifiers: Hyperlipidemia type: unspecified Qualified Code(s): E78.5 - Hyperlipidemia , unspecified (3) GERD (gastroesophageal reflux disease) Priority: Secondary Status: Chronic Qualifiers: Esophagitis presence: esophagitis presence not specified Qualified Code(s) : K21.9 - Gastro-esophageal reflux disease without esophagitis (4) Essential hypertension Priority: Secondary Status: Acute (5) Postoperative bile leak Priority: Primary Status: Acute (6) Hypokalemia Priority: Secondary Status: Acute - Discharge Medications Prescriptions: Amoxicillin/Clavulanate [Augmentin] 875 mg PO BIDWM #5 tablet HYDROcodone/Acet 5/325 mg [[place] 5-325 mg] 1 tab PO Q8H PRN #20 tablet PRN Reason: Pain Home Medications: Atorvastatin [Lipitor] 10 mg PO HS 06/01/15 [History] Cholecalciferol (Vitamin D3) [Vitamin D3] 1,000 unit PO DAILY 06/01/15 [History] Lisinopril-HCTZ 10-12.5 [Prinzide 10-12.5] 1 each PO DAILY 06/01/15 [History] Omeprazole [PriLOSEC] 20 mg PO BIDAC 06/01/15 [History] Ropinirole [Requip] 3 mg PO BID 06/01/15 [History] Sertraline [Zoloft] 25 mg PO BID 02/14/16 [History] Aspirin 81 mg PO DAILY 06/14/16 [History] Hyoscyamine SL [Levsin Sl] 0.125 mg SL TID 06/14/16 [History] Lansoprazole [Prevacid] 15 mg PO DAILY 06/14/16 [History] Ondansetron ODT [Zofran ODT] 4 mg SL Q8H PRN 06/14/16 [History] Sucralfate [Carafate] 1 gm PO BID 06/14/16 [History] Vitamin B Complex [B Complex] 1 each PO DAILY 06/14/16 [History] Amoxicillin/Clavulanate [Augmentin] 875 mg PO BIDWM #5 tablet 06/21/16 [Rx] HYDROcodone/Acet 5/325 mg [[place] 5-325 mg] 1 tab PO Q8H PRN #20 tablet 06/21/16 [Rx] Allergies/Adverse Reactions: Allergies gabapentin Allergy (Verified 06/14/16 19:11) Rash terfenadine [From [place]] Allergy (Verified 06/14/16 19:11) Rash tuberculin,PPD,multi-puncture Allergy (Verified 06/14/16 19:11) Rash Date of admission: 06/15/16 01:51 Primary care physician: Valery Rodriguez Consults: 06/19/16 12:36 Consult to Gastroenterology [CONS] Routine Consulting Provider: [facility] Reason for Consult: Bile leak; s/p cholecystectomy POD #3 Time Notified: 12:37 Call Completed: Yes - Patient Status Disposition: Home, Self-Care Condition: Fair Overall status at discharge: patient is progressing back to baseline - Discharge Instructions Follow Up With: Alcira England CNP [Advanced Practice Nurse] - Jose Zaman MD [Primary Care Provider] - Additional Instructions: Follow with primary care physician within 7 days. Follow with the surgery service to remove MORELIA drain. Complete 5 more doses of Augmentin . - Diet and Activity Activity: increase activity as tolerated Diet: low fat, low cholesterol Hospital course: Ms. Mcclendon is a 81 year old female with PMH of HTN, hyperlipidemia, GERD, venous insufficiency, restless leg syndrome, depression and history of kidney stones. Patient presented to [facility] ED with complaint of RUQ abdominal pain radiating to RLQ on 06/14. Acute onset of pain starting 5/ pm. Patient was not sure if modified by eating since she has not eaten due to poor appetite. It's associated with nausea and vomiting with yellow liquid vomitus. Patient was in [place] at that time and had an ED visit there. Per patient, she got CT A/P and gallbladder US there and was told the gallbladder looks infected but surgery was not indicated so she was discharged with PPI, sucralfate and hyoscyamine. Patient's abdominal pain, nausea and vomiting persisted so eventually she came to [facility] ED right after coming back to [place]. In ED, patient was noted to have leukocytosis at 17.2 and slightly elevated troponin at 0.05. CT A/P suggested acalculous cholecystitis and which was further confirmed by gallbladder US. Patient underwent lap kvng with Dr. Perry 06/16/16. On POD #3, it was noted patient MORELIA drain was still producing large volume of bile, patient was having RUQ/RLQ abd pain post-kvng. Was diagnosed with a bile leak. Underwent stent placemnt in the CBD through ERCP on 06/20/16. Has received 5 days of Zosyn. Was given the option to stay another day as she still has serosanguinous fluid coming out in moderate amounts but prefers to be discharged home. Can discharge if cleared by surgery. - Time Spent with Patient Total time spent providing and/or coordinating discharge services: Greater than 30 minutes (40 min) - Constitutional Vitals: Temp Pulse Resp BP Pulse Ox 98.7 F 78 18 130/78 93 06/21/16 06:41 06/21/16 06:41 06/21/16 06:41 06/21/16 06:41 06/21/16 06:41 General appearance: Present: cooperative, A&O X 3, no acute distress, answers questions appropriately - Head Head exam: Present: atraumatic, normocephalic - Eye Eye exam: Present: PERRL, conjuntiva pink, sclera anicteric Pupils: Present: PERRL - Neck Neck exam general surgery: Present: supple, trachea midline. Absent: lymphadenopathy - Respiratory Respiratory exam: Present: CTAB. Absent: accessory muscle use, rales, rhonchi, wheezes - Cardiovascular Cardiovascular exam: Present: RRR, +S1, +S2. Absent: diastolic murmur, gallop, rubs, systolic murmur - GI/Abdominal GI/Abdominal exam: Present: distended (right abdominal MORELIA drain with serosanguinous fluid), normal bowel sounds, soft, no peritoneal signs. Absent: tenderness - Extremities Exam Extremities exam: Present: warm, radial pulses palpable and symetrical. Absent : calf tenderness, cyanotic, pedal edema - Neurological Exam Neurological exam: Present: CN II-XII intact, oriented X3, no focal deficits. Absent: pronater drift, facial droop, speech deficit - Skin Skin exam: Present: dry, intact - VTE Documentation of Mechanical Device: Venous foot pump, device
[2016-06-21 14:08] LABS: BUN/Creatinine Ratio 10 (6-26); Blood Urea Nitrogen 6 mg/dL (7-20); Calcium 8.3 mg/dL (8.6-10.8); Carbon Dioxide 29 mEq/L (19-29); Chloride 106 mEq/L (98-109); Glucose 102 mg/dL (70-99); Osmolality,Calculated 292 (280-300); Potassium 3.5 mEq/L (3.5-4.5); Sodium 142 mEq/L (136-145); eGFR For African Americans > 60 (> 60); eGFR For Non-African Americans > 60 (> 60)
[2016-06-21 14:19] VITALS: BP 120/68
== END 2016-06-21 15:43 | disposition home or self-care (01) | DRG 418 ==
LOC: EMEROO 16:41 → 3ANU 16:41 → SUATTDRO 06-15 01:51
PROVIDERS: ADMIT Internal Medicine; ATTEND Internal Medicine

== ENCOUNTER 2018-12-25 13:18 | Inpatient (IN) ==
[2018-12-25] MEDS ORDERED: Clindamycin 900 MG/50 ML 900 MG/50 ML IV.SOLN IVPB ONE (13:40)
[2018-12-25] MEDS ORDERED: Ringers Solution, Lactated 1,000 ML IVC SCH ×2 (13:45→18:53)
[2018-12-25] MEDS ORDERED: *HR* HYDROmorphone (PF) 1 MG/ML SYRINGE IVP PRN (14:04)
[2018-12-25] MEDS ORDERED: Ondansetron 4 MG/2 ML VIAL IVP ONE (14:04)
[2018-12-25] MEDS ORDERED: *HR* OxyCODONE Immed Rel 5 MG TABLET PO PRN ×2 (14:04→18:53)
[2018-12-25] MEDS ORDERED: *HR* Promethazine 25 MG/ML VIAL IVP PRN ×2 (14:04→18:53)
[2018-12-25] MEDS ORDERED: Acetaminophen IV 1,000 MG/100 ML INFUS..BTL IVPB ONE (14:13)
[2018-12-25] MEDS ORDERED: Ethanol\\Acetic Acid\\Na Ace\\Ben 1,000 ML IRRIG.SOLN IR ONE (15:22)
[2018-12-25] MEDS ORDERED: *HR* FentaNYL (PF) 100 MCG/2 ML VIAL ONE (15:22)
[2018-12-25] MEDS ORDERED: Ondansetron 4 MG/2 ML VIAL ONE ×2 (15:23→17:47)
[2018-12-25] MEDS ORDERED: *HR* Propofol 200 MG/20 ML VIAL IVP ONE (15:23)
[2018-12-25] MEDS ORDERED: Dexamethasone 4 MG/ML VIAL ONE (15:23)
[2018-12-25] MEDS ORDERED: Lidocaine -MPF 2% 2 ML VIAL ONE (15:23)
[2018-12-25] MEDS ORDERED: Lidocaine -MPF 4% 5 ML AMPUL ONE (15:24)
[2018-12-25] MEDS ORDERED: *HR* Succinylcholine 200 MG/10 ML VIAL IVP ONE (15:24)
[2018-12-25] MEDS ORDERED: Ropivacaine/PF 0.5% 30 ML VIAL ONE (15:26)
[2018-12-25] MEDS ORDERED: Tranexamic Acid 1,000 MG/10 ML VIAL ONE (15:38)
[2018-12-25] MEDS ORDERED: Total Joint Mixture (50 ml) IR ONE (15:40)
[2018-12-25] MEDS ORDERED: *HR* PHENYLEPHRINE 1,000 MCG/10 ML SYRINGE IVP ONE (16:04)
[2018-12-25] MEDS ORDERED: EPHEDrine 50 MG/ML VIAL ONE (17:08)
[2018-12-25 18:33] LABS: Hematocrit 36.5 % (35.3-44.9); Hemoglobin 12.1 g/dL (11.5-15.4)
[2018-12-25] MEDS ORDERED: traMADol 50 MG TABLET PO PRN (18:53)
[2018-12-25] MEDS ORDERED: Acetaminophen/Aspirin/Caffeine TABLET PO PRN (18:53)
[2018-12-25] MEDS ORDERED: Temazepam 15 MG CAPSULE PO PRN (18:53)
[2018-12-25] MEDS ORDERED: Naloxone 0.4 MG/ML INJ IVP PRN (18:53)
[2018-12-25] MEDS ORDERED: Ondansetron 4 MG/2 ML VIAL IVP PRN (18:53)
[2018-12-25] MEDS ORDERED: Sennosides 8.6 MG TABLET PO PRN (18:53)
[2018-12-25] MEDS ORDERED: MOM Conc 10 ML UD.LIQ PO PRN (18:53)
[2018-12-25] MEDS ORDERED: HYDROcodone BIT/Homatropine 5 MG TABLET PO PRN (18:53)
[2018-12-25] MEDS: Clindamycin 900 MG/50 ML 900 MG/50 ML IV.SOLN IVPB SCH (19:53)
[2018-12-25] MEDS: Ascorbic Acid 500 MG TABLET PO SCH (19:56)
[2018-12-25] MEDS ORDERED: ROPINIROLE 8 MG PO SCH (21:00)
[2018-12-25] MEDS: Furosemide 20 MG TABLET PO SCH (23:29)
[2018-12-26 05:08] LABS: Basophils % 0.2 %; Hematocrit 33.2 % (35.3-44.9); Immature Granulocytes % 0.4 % (0-4); Lymphocytes # 0.9 K/mcL (0.6-4.6); Lymphocytes % 7.6 %; Mean Corpuscular HGB Conc 31.6 g/dL (31.6-35.5); Mean Corpuscular Hemoglobin 29.7 pg (28.0-33.3); Mean Corpuscular Volume 94.1 fL (83.0-100.0); Mean Platelet Volume 9.7 fL (9.4-12.4); Monocytes # 0.8 K/mcL (0.0-1.3); Monocytes % 6.7 %; Neutrophils # 9.7 K/mcL (1.6-8.9); Platelet Count 180 K/mcL (140-400); Red Blood Count 3.53 M/mcL (3.82-4.97); Segmented Neutrophils % 85.1 %; White Blood Count 11.4 K/mcL (4.3-11.1)
[2018-12-26 05:12] LABS: Hemoglobin 10.5 g/dL (11.5-15.4)
[2018-12-26] MEDS: Clindamycin 900 MG/50 ML 900 MG/50 ML IV.SOLN IVPB SCH (05:25)
[2018-12-26 05:27] LABS: BUN/Creatinine Ratio 18 (6-26); Blood Urea Nitrogen 15 mg/dL (8-23); Calcium 8.4 mg/dL (8.6-10.3); Carbon Dioxide 27 mEq/L (23-29); Chloride 105 mEq/L (98-107); Glucose 125 mg/dL (70-105); Osmolality,Calculated 294 (280-300); Potassium 4.5 mEq/L (3.5-5.1); Sodium 141 mEq/L (136-145); eGFR For African Americans > 60 (> 60); eGFR For Non-African Americans > 60 (> 60)
[2018-12-26] MEDS ORDERED: NON-FORMULARY MEDICATION 1 EACH EACH (Mv-Min/Iron/Folic/Calcium/Vitk [Women's Multivitamin PO SCH (09:00)
[2018-12-26] MEDS ORDERED: Aspirin 81 MG TAB.CHEW PO SCH (09:00)
[2018-12-26] MEDS ORDERED: Cholecalciferol (D-3) 1,000 UNIT (25MCG) TABLET PO SCH (09:00)
[2018-12-26] MEDS ORDERED: Multivit/Ca/Min/Fe/FA 1 TAB TABLET PO SCH (09:00)
[2018-12-26] MEDS: Furosemide 20 MG TABLET PO SCH (09:43)
[2018-12-26] MEDS: Ascorbic Acid 500 MG TABLET PO SCH (09:44)
[2018-12-26 11:52] VITALS: BP 101/63
[2018-12-26] MEDS ORDERED: *HR* Enoxaparin 30 MG/0.3 ML SYRINGE SQ SCH ×2 (13:41)
== END 2018-12-26 16:05 | disposition home health service (06) | DRG 468 ==
LOC: SAMDAY 13:18 → 3NENU 19:05
PROVIDERS: ADMIT Orthopaedic Surgery; ATTEND Orthopaedic Surgery